=== PATIENT | female | born 1950 | race Caucasian/White ===

== ENCOUNTER 2023-04-15 14:45 | Outpatient (RCR) | payer MEDICARE, OTHER, SELFPAY | END 2023-05-17 11:43 | disposition home or self-care (01) | LOC: PT 14:45 | PROVIDERS: PCP Family Medicine; Visit Provider Family Medicine | DX: M54.9 Dorsalgia, unspecified (principal) | CPT/HCPCS: 97110; 97112; 97140; 97163 ==

== ENCOUNTER 2024-08-17 11:45 | Outpatient (OUT) | payer MEDICARE, OTHER, SELFPAY ==
--- NOTE | 2024-08-17 11:53 | XR_ITS ---
The [address] [address] Patient Name: ANDRAE FLORES MRN: [id number] date: 1950 Sex: F Assigned Patient Location: [facility] Current Patient Location: [facility] Accession/Order Number: [id number] Exam Date: 08/17/2024 13:48 Report Date: 08/17/2024 13:49 At the request of: DELMER NEWTON Procedure: XR clavicle RT XR clavicle RT 08/17/2024 12:01 PM SIGNS AND SYMPTOMS: ^Right Clavicle Lump PROTOCOL: Frontal and axial views of the right clavicle COMPARISON: None FINDINGS: A BB marker is present along the medial aspect of the shaft of the right clavicle without underlying bony expansile or destructive process. The sternoclavicular joint space is grossly within normal limits. The acromioclavicular joint shows mild hypertrophic change. The clavicles grossly intact. The visualized right hemithorax is intact. XR/XR clavicle RT IMPRESSION: No acute bony abnormalities. No significant degenerative change along the sternoclavicular joint. Mild degenerative changes are noted in the right acromioclavicular joint. Impression dictated by: Cole Briseno M.D.08/17/2024 1:49 PM Dictation Location: [place] [address] Electronically authenticated by: [id number] Y Date: 08/17/2024 13:49
--- OUTSIDE RECORDS SUMMARY | 2024-08-17 12:08 | XMS_ITS | CCD ---
Author Organization [facility] Care Team Providers Care Coach Operator Name Role Phone DR TAN COULTER Primary Care Unavailable MIGUEL ÁNGEL WOOD Consulting Unavailable SHERIE, DR ALYSON Ch Admitting Unavailable SHERIE, DR ALYSON Ch Attending Unavailable SHERIE, DR ALYSON Ch Consulting Unavailable MORENITA ., DELICIA Consulting Unavailable FALGERMAN, ANISA Consulting Unavailable KLMIGUEL ÁNGEL MEHTA Consulting Unavailable OWCHINTAN GLEZ Consulting Unavailable Unknown, Referring Provider Unavailable Unav ailable Dr. Cooper Mendoza Attending Unavail able Reji, Dr. Cooper Martinez Referring Unavail able UNKNOWN, PCP Primary Care Unavailable Dr. Cooper Mendoza Attending Unavail able Dex, Ms. Dot Aguero Referring Unavailable UNKNOWN, PCP Primary Care Unavailable Edson, BEAUTY OPERATOR Karla Pena Attending Unavailable Brandt Head Attending Unavailable Brandt Head Attending Unavailable Allergies Allergy Classification Reported Allergen(s) Allergy Type Date of Onset Reaction(s) Facility (1 source) Anesthesia IV Set MISC; Translations: [Anesthesia IV Set MISC] Allergy to drug (finding) [facility] B102 Work Phone: (1 source) Cat; Translations: [Cats] Propensity to adverse reactions (disorder) [facility] (1 source) No Known Medication Allergies; Translations: [No Known Medication Allergies] Propensity to adverse reactions (disorder) [facility] Medications Completed/Discontinued Medications Medication Drug Class(es) Dates Sig (Normalized) Sig (Original) aspirin 81 mg oral tablet (1 source) Platelet Aggregation Inhibitor, Nonsteroidal Anti-inflammatory Drug Aspirin 81 MG TAB S Quantity: 0 Refills: 0 Ordered: 15-Mar-2023 DO Active Problems Problem Classification Problem Date Documented Da te Episodic/Chronic Blindness and vision defects (6 sources) Diplopia; Translations: [Diplopia] Onset: 09-05-2022 Episodic Other aftercare (1 source) shelter (current) use of aspirin; Translations: [FCI CURRENT USE OF ASPIRIN] Onset: 09-08-2022 Episodic Other aftercare (1 source) Other fci (current) drug therapy; Translations: [OTH HEAT TREATER HEAD CURRENT DRUG THERAPY] Onset: 09-08-2022 Episodic Thyroid disorders (1 source) Graves' disease; Translations: [Toxic diffuse goiter without mention of thyrotoxic crisis or storm] Chronic Unclassified (1 source) CONTACT W/AND (SUSP) EXPOS COVID-19; Translations: [CONTACT W/AND (SUSP) EXPOS COVID-19] Onset: 09-08-2022 Results Test Name Value Interpretation Reference Range Facility Ophthalmic Eye [facility] 2022 Ophthalmic Eye Exam DOCUMENT REVIEWED BY : Cooper Mendoza MD DOCUMENT SIGNED ELECTRONICALLY BY Cooper Mendoza MD ON 03/15/2023 02:51:24 PM [facility] [address] [address] [facility]. 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 She denies further diplopia. She confirms prior history of episodes lasting 4-6 weeks of diplopia. She denies any eyelid problems. HISTORY OF PRESENT ILLNESS: HPI was performed by Dr. Cooper Mendoza MD and scribed by Ange Mendoza MD PAST MEDICAL HISTORY: SURGERIES: History of Cataract surgery; History of Eye surgery SOCIAL HISTORY: SMOKING: Non-smoker (V49.89 Z78.9) FAMILY HISTORY: MOTHER: Family history of No pertinent family history CURRENT MEDICATIONS: Aspirin 81 MG TABS (No longer available) - Tablet, [Reported] ALLERGIES: Anesthesia IV Set MISC Exam ORIENTATION, MOOD AND AFFECT: Alert AND oriented x3 RIGHT EYE LEFT EYE UNCORRECTED VA N/A N/A WEARING +0.50 -0.50 x 092 add +2.25 +0.75 -1.50 x 087 add +2.25 CORRECTED VA 20/20 20/20 PRESSURE METHOD: Goldmann Goldmann PRESSURES: 14 14 DATE-TIME: 03/15/2023 1:49:53 PM 03/15/2023 1:49:53 ETHICS INSTRUCTOR: marshal araya CONFRONTATION VF Full to count fingers Full to count fingers EXTERNAL EYE EXAM: LID: Good Position Good Position PUPIL: 5 to 3 mm, no RAPD 5 to 3 mm, no RAPD ADNEXA: Normal Normal MUSCLE BALANCE: Ortho OCULAR MOTILITY: Full. No internuclear ophthalmoplegia. No nystagmus. STEREO ONE-THIRD METER: -Fly 08/27 02/02 COLOR VA ISHIHARA OUT OF 11 OD: 11 COLOR VA ISHIHARA OUT OF 11 OS: 11 ANTERIOR SEGMENT EXAM: TEARFILM: Good Good CONJUNCTIVA: White and quiet White and quiet CORNEA: Clear Clear ANTERIOR CHAMBER: Deep and quiet Deep and quiet IRIS: Round and reactive Round and reactive LENS: pciol pciol ANTERIOR VITREOUS: Clear Clear FUNDUS EXAM: CUP TO DISC: .4 .4 OPTIC DISC: Cushing and sharp Cushing and sharp VITREOUS: Clear Clear MACULA: drusen geographic atrophy central VESSELS: Normal Normal PERIPHERY: No tears, breaks, or holes No tears, breaks, or holes Impression 1 E05.00 Graves disease-Stable 2 H53.2 Diplopia-Stable Plan 09/05/2022 MRI brain without contrast, by report from [facility], shows ?No acute intracranial process.? 09/05/2022 ultrasound duplex carotid arteries, by report from [facility], shows ?0-49% flow stenosis bilateral internal carotid arteries? 09/05/2022 CTA head AND neck, by report from [facility], shows ?No large vessel occlusion or high-grade stenosis in the head or neck.? 09/05/2022 CT head without contrast, by report from [facility], shows ?No acute intracranial abnormality? 05/26/2016 CT head without contrast, by report from [facility], shows ?1. No acute or suspicious intracranial abnormality. 2. Right maxillary acute sinusitis.? 11/09/2022 acetylcholine receptor binding, blocking AND modulating antibodies, thyroid peroxidase antibody, thyroid stimulating immunoglobulin, thyrotropin receptor antibody AND thyroid function testing negative/wnl. 09/06/2022 lipid panel with LDL 104.6. HbA1c 5.6%. 09/05/2022 ESR 10. CRP <0.2 mg/dL. TSH wnl. 03/09/2021 lipid panel LDL 107. This 72 year old woman with a history of Graves disease, HLD presents in follow up for evaluation of intermittent diplopia. Diplopia has not happened, and alignment remains normal. 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 We agreed to defer further testing for now. Plan Continue antiplatelet. Defer atorvastatin 40 mg bedtime after discussion and her preference. Follow up for further diplopia with stereo plates (dilated:11/09/2022) created by:Cooper Mendoza MD Cooper Mendoza MD DOCUMENT CREATE DATE: 03/15/2023 02:51:15 PM Received for:Cooper Mendoza MD,PhD Mar 15 2023 2:51PM Eastern Standard Time Normal Touchworks THYROID STIM IMMUNOGLOBon THYROID STIM IMMUNOGLOB <1.0 Normal <=1.3 [facility] Comment on above: Result Comment: Test Performed by: [facility] [address] [place] [address] Plastics Engineering Teacher: Aurelio Saunders M.D. Ph.D.; CLIA# [id number] Performed By: #### T SIG #### [facility] [address] [place] [address] ACHR MODULATING ABon 023 ACHR MODULATING AB 0 % Normal <=45 [facility] Comment on above: Result Comment: INTE RPRETIVE INFORMATION: Acetylcholine Modulating Ab Negative .......... 0-45 percent modulating Positive .......... 46 percent or greater modulating Approximately 85-90 percent of patients with myasthenia gravis (MG) express antibodies to the acetylcholine receptor (AChR), which can be divided into binding, blocking, and modulating antibodies. Binding antibody can activate complement and lead to loss of AChR. Blocking antibody may impair binding of acetylcholine to the receptor, leading to poor muscle contraction. Modulating antibody causes receptor endocytosis resulting in loss of AChR expression, which correlates most closely with clinical severity of disease. Approximately 10-15 percent of individuals with confirmed myasthenia gravis have no measurable binding, blocking, or modulating antibodies. This test was developed and its performance characteristics determined by [facility]. It has not been cleared or approved by the [place] Food and Drug Administration. This test was performed in a CLIA certified laboratory and is intended for clinical purposes. Performed By: [facility] [address] [place] [address] Cryptologic Supervisor: Dominik Agustin MD, PhD Performed By: #### A CRMA #### [place] [address] ACETYLCHOL.RECEPTOR BINDING ABon 11-11-2022 ACETYLCHOL.RECEPTOR BINDING AB 0.0 nmol/L Normal 0.0-0.4 [facility] Comment on above: Result Comment: INTE RPRETIVE INFORMATION: Acetylcholine Binding Ab Negative ....... 0.0 - 0.4 nmol/L Positive ....... 0.5 nmol/L or greater Approximately 85-90 percent of patients with myasthenia gravis (MG) express antibodies to the acetylcholine receptor (AChR), which can be divided into binding, blocking, and modulating antibodies. Binding antibody can activate complement and lead to loss of AChR. Blocking antibody may impair binding of acetylcholine to the receptor, leading to poor muscle contraction. Modulating antibody causes receptor endocytosis resulting in loss of AChR expression, which correlates most closely with clinical severity of disease. Approximately 10-15 percent of individuals with confirmed myasthenia gravis have no measurable binding, blocking, or modulating antibodies. This test was developed and its performance characteristics determined by [facility]. It has not been cleared or approved by the US Food and Drug Administration. This test was performed in a CLIA certified laboratory and is intended for clinical purposes. Performed By: [facility] [address] [place] [address] Cryptologic Supervisor: Dominik Agustin MD, PhD Performed By: #### A CHR #### [address] [address] ACHR BLOCKING ABon 3 ACHR BLOCKING AB 4 % Normal 0-26 [facility] Comment on above: Result Comment: INTE RPRETIVE INFORMATION: Acetylcholine Blocking Ab Negative ............ 0-26 percent blocking Indeterminate ....... 27-41 percent blocking Positive ............ 42 percent or greater blocking Approximately 85-90 percent of patients with myasthenia gravis (MG) express antibodies to the acetylcholine receptor (AChR), which can be divided into binding, blocking, and modulating antibodies. Binding antibody can activate complement and lead to loss of AChR. Blocking antibody may impair binding of acetylcholine to the receptor, leading to poor muscle contraction. Modulating antibody causes receptor endocytosis resulting in loss of AChR expression, which correlates most closely with clinical severity of disease. Approximately 10-15 percent of individuals with confirmed myasthenia gravis have no measurable binding, blocking, or modulating antibodies. This test was developed and its performance characteristics determined by [facility]. It has not been cleared or approved by the US Food and Drug Administration. This test was performed in a CLIA certified laboratory and is intended for clinical purposes. Performed By: [facility] [address] [place] [address] Cryptologic Supervisor: Dominik Agustin MD, PhD Performed By: #### A CRBL #### [address] [address] THYROTROPIN RECEPTOR ABo THYROTROPIN RECEPTOR AB <0.80 Normal <=1.75 [facility] Comment on above: Result Comment: Perf ormed By: [facility] [address] [place] [address] Cryptologic Supervisor: Dominik Agustin MD, PhD Performed By: #### T HYRA #### [address] [address] ANTITHYROID PEROX. ABon 10-25 ANTITHYROID PEROX. AB <28 Normal [facility] Comment on above: Result Comment: Nega tive: <=60 U/mL Positive: >60 U/mL Performed By: #### T POA2 #### [facility] [address] [place] [address] Ophthalmic Eye Examon 2022 Ophthalmic Eye Exam DOCUMENT REVIEWED BY : Cooper Mendoza MD DOCUMENT SIGNED ELECTRONICALLY BY Cooper Mendoza MD ON 11/09/2022 10:06:41 AM [place] [id number] [address]. [address] [place], [address] THIS DOCUMENT WAS CREATED ON: 11/09/2022 10:06:34 AM BY: Cooper Saundersrey Jim performed BAUQP-Ynhz-it Exam Date: Wednesday, November 09, 2022 PATIENT NAME: ANDRAE FLORES DATE: 1950 AGE: 72 GENDER: Female RACE: REFERRING DOCTOR: Dot Kowalski PRIMARY CARE PHYSICIAN: Tan Coulter History Chief Complaint/Reason For Visit: -- Attending history below -- This 72 year old woman with a history of Graves disease 2012, HLD presents for evaluation of diplopia. She had Graves diseasein 2012. She reports no treatment with resolution over time. She reports 3 episodes of diplopia since 04/2016 lasting 30-40 days at a time. She reports with the first episode she had a sinus infection before it. She had vertical diplopia. She does not report which nerve or muscle was involved. She then had another episode also of diplopia, but without any sinus infection. She denies any scans around these episodes. The first 2 episodes had no pain. Neuro-scrap materials buyer Dr. 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 The third episode was horizontal with onset 09/05/2022. She went to the emergency department at [facility]. She did have left pain leading up to it. She denies ptosis with all episodes. She was referred by MANAGER DR[employer]ET[employer] Dot Kowalski. By the 09/15/2022 note, she had been seen for diplopia 09/07/2022. She had then seen Dr. 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 She denies prior episodes of other neurological deficits. HISTORY OF PRESENT ILLNESS: HPI was performed by Dr. Cooper Mendoza MD and scribed by Ange Mendoza MD PAST MEDICAL HISTORY: SURGERIES: History of Cataract surgery; History of Eye surgery SOCIAL HISTORY: SMOKING: Non-smoker (V49.89 Z78.9) FAMILY HISTORY: MOTHER: Family history of No pertinent family history CURRENT MEDICATIONS: No Reported Medications - ALLERGIES: Anesthesia IV Set MISC REVIEW OF SYSTEMS: All other Review Of Systems negative Exam ORIENTATION, MOOD AND AFFECT: Alert AND oriented x3 RIGHT EYE LEFT EYE UNCORRECTED VA N/A N/A WEARING +0.50 -0.50 x 092 add +2.25 +0.75 -1.50 x 087 add +2.25 CORRECTED VA 20/20 20/20 PRESSURE METHOD: Goldmann Goldmann PRESSURES: 14 14 DATE-TIME: 11/09/2022 9:08:16 AM 11/09/2022 9:08:16 AM ITINERANT TEACHER ASSISTANT: tahmina martel CONFRONTATION VF Full to count fingers Full to count fingers EXTERNAL EYE EXAM: LID: Good Position Good Position PUPIL: 5 to 3 mm, no RAPD 5 to 3 mm, no RAPD ADNEXA: Normal Normal MUSCLE BALANCE: Ortho OCULAR MOTILITY: Full. No internuclear ophthalmoplegia. No nystagmus. STEREO ONE-THIRD METER: +Fly 3/3 8/9 COLOR VA ISHIHARA OUT OF 11 OD: 11 COLOR VA ISHIHARA OUT OF 11 OS: 11 Versions and Ductions OD Versions and Ductions OS SR elevate IO IO elevate SR 0 0 abduct 0 0 0 0 abduct 0 0 IR depress SO SO depress IR ANTERIOR SEGMENT EXAM: TEARFILM: Good Good CONJUNCTIVA: White and quiet White and quiet CORNEA: Clear Clear ANTERIOR CHAMBER: Deep and quiet Deep and quiet IRIS: Round and reactive Round and reactive LENS: pciol pciol ANTERIOR VITREOUS: Clear Clear FUNDUS EXAM: DILATION and NUMBING DROPS: Mydriacyl 1% AND Singh 2 1/2% OU 11/09/2022 09:45:32 AM CUP TO DISC: .4 .4 OPTIC DISC: Cushing and sharp Cushing and sharp VITREOUS: Clear Clear MACULA: drusen geographic atrophy central VESSELS: Normal Normal PERIPHERY: No tears, breaks, or holes No tears, breaks, or holes SPECIAL TESTS: FOREHEAD SENSATION Normal Normal CHEEK SENSATION Normal Normal MANDIBLE SENSATION Normal Normal CRANIAL NERVE V7 Normal Normal CRANIAL NERVE V8 Normal Normal CRANIAL NERVE V9: Normal CRANIAL NERVE V10: Normal CRANIAL NERVE V11 Normal Normal CRANIAL NERVE V12 Normal Normal CEREBELLAR Normal Normal PRONATOR DRIFT RIGHT SIDE: Normal PRONATOR DRIFT LEFT SIDE: Normal TANDEMWALK: Normal Impression 1 E05.00 Graves disease-New 2 H53.2 Diplopia-New Plan 09/05/2022 MRI brain without contrast, by report from [facility], shows ?No acute intracranial process.? 09/05/2022 ultrasound duplex carotid arteries, by report from [facility], shows ?0-49% flow stenosis bilateral internal carotid arteries? 09/05/2022 CTA head AND neck, by report from [facility], shows ?No large vessel occlusion or high-grade stenosis in the head or neck.? 09/05/2022 CT head without contrast, by report from [facility], shows ?No acute intracranial abnormality? 05/26/2016 CT head without contrast, by report from [facility], shows ?1. No acute or suspicious intracranial abnormality. 2. Right maxillary acute sinusitis.? 09/06/2022 lipid panel with LDL 104.6. HbA1c 5.6%. 09/05/2022 ESR 10. CRP <0.2 mg/dL. TS (more content not included)... Normal [facility] THYROXINE,FREEon 11-09-2022 THYROXINE,FREE 0.89 ng/dL Normal 0.61 - 1.12 [facility] Comment on above: Result Comment: Thyr oxine Free testing is performed using different testing methodology at [facility] than at other [facility]. Direct result comparisons should only be made within the same method. . Biotin can cause falsely elevated free T4 results. Patients taking a Biotin dose of up to 10 mg/day should refrain from taking Biotin for 24 hours before sample collection. Patient taking a Biotin dose of >10 mg/day should consult with their physician or the laboratory before the blood draw. Performed By: #### T 4FRE #### [facility] [address] [place], [place] [id number] TRIIODOTHYRONINE,FREEon 10-25 TRIIODOTHYRONINE,LIZETT E 2.8 pg/mL Normal 2.3 - 4.2 [facility] Comment on above: Performed By: #### T 3FRE #### [facility] [address] [place] [address] TSHon 11-09-2022 TSH Qn 0.88 m[IU]/L Normal 0.44 - 3.98 [facility] Comment on above: Result Comment: TSH testing is performed using different testing methodology at [facility] than at other [facility]. Direct result comparisons should only be made within the same method. Performed By: #### T SH2 #### [address] [id number] CBC AUTO DIFFon 09-06-2022 BASO # 0.0 103/ul Normal 0.0-0.1 [facility] Comment on above: Performed By: #### C BC ####[facility] [address] [place] [address]Dr. Kerry Cassidy Basophils/100 WBC (Bld) 0.6 % Normal 0.2-2.0 [facility] Comment on above: Performed By: #### C BC ####[facility] [address] [place], [place] [address]Dr. Kerry Cassidy EO # 0.2 103/ul Normal 0.0-0.7 [facility] Comment on above: Performed By: #### C BC ####[facility] [address] [place] [address]Dr. Kerry Cassidy Eosinophils/100 WBC (Bld) 3.2 % Normal 0.9-7.0 [facility] Comment on above: Performed By: #### C BC ####[facility] [address] [place], [place] [address]Dr. Kerry Cassidy Erythrocyte distribution width (RBC) [Ratio] 12.2 % Normal 11.0-15.0 [facility] Comment on above: Performed By: #### C BC ####[facility] [address] [place], [place] [address]Dr. Kerry Cassidy Hematocrit (Bld) [Volume fraction] 39.3 % Normal 36.0-48.0 [facility] Comment on above: Performed By: #### C BC ####[facility] [address] [place], [place] [address]Dr. Kerry Cassidy Hemoglobin (Bld) [Mass/Vol] 13.2 g/dL Normal 12.0-16.0 [facility] Comment on above: Performed By: #### C BC ####[facility] [address] [place] [id number]. Kerry Khanh IG # 0.00 10e3/ul Normal 0.00-0.03 [facility] Comment on above: Performed By: #### C BC ####[facility] [address] [place] [id number]. Kerry Cassidy IG % 0.0 % Normal 0.0-0.5 [facility] Comment on above: Performed By: #### C BC ####[facility] [address] [place] [address]Dr. Kerry Cassidy LYMPH # 1.7 103/ul Normal 1.2-3.8 [facility] Comment on above: Performed By: #### C BC ####[facility] [address] [place] [address]DrCharanjit Cassidy Lymphocytes/100 WBC (Bld) 36.9 % Normal 20.5-60.0 [facility] Comment on above: Performed By: #### C BC ####[facility] [address] [place] [address]DrCharanjit Cassidy MANUAL DIFF REQ NO Normal [facility] Comment on above: Performed By: #### C BC ####[facility] [address] [place] [id number]. Kerry Cassidy MCH (RBC) [Entitic mass] 31.3 pg Normal 26.7-34.0 [facility] Comment on above: Performed By: #### C BC ####[facility] [address] [place] [id number]. Gloriadeepak Cassidy MCHC (RBC) [Mass/Vol] 33.6 g/dL Normal 29.9-35.2 [facility] Comment on above: Performed By: #### C BC ####[facility] [address] [place] [id number]. Kerry Cassidy MCV (RBC) [Entitic vol] 93.1 fL Normal 81.0-99.0 [facility] Comment on above: Performed By: #### C BC ####[facility] [address] [place] [id number]. Kerry Cassidy MONO # 0.5 103/ul Normal 0.3-0.8 [facility] Comment on above: Performed By: #### C BC ####[facility] [address] [place] [id number]. Kerry Cassidy Monocytes/100 WBC (Bld) 11.2 % Normal 1.7-12.0 [facility] Comment on above: Performed By: #### C BC ####[facility] [address] [place] [id number]. Kerry Cassidy NEUT # 2.2 103/ul Normal 1.4-6.5 [facility] Comment on above: Performed By: #### C BC ####[facility] [address] [place], [place] [address]Dr. Kerry Cassidy Neutrophils/100 WBC (Bld) 48.1 % Normal 43.0-75.0 [facility] Comment on above: Performed By: #### C BC ####[facility] [address] [place] [id number]. Kerry Cassidy Platelet mean volume (Bld) [Entitic vol] 8.9 fL Critically low 9.5-13.5 [facility] Comment on above: Performed By: #### C BC ####[facility] [address] [place] [address]Dr. Kerry Cassidy PLT 266 103/ul Normal 150-450 [facility] Comment on above: Performed By: #### C BC ####[facility] [address] [place], [place] [id number]. Kerry Cassidy RBC 4.22 106/ul Normal 4.20-5.40 [facility] Comment on above: Performed By: #### C BC ####[facility] [address] [place] [id number]. Kerry Cassidy WBC 4.6 103/ul Normal 4.0-11.0 [facility] Comment on above: Performed By: #### C BC ####[facility] [address] [place], [place] [address]Dk. Kerry Cassidy ECHOCARDIO M/2D COMPLETEon 0 09-06-2022 ECHOCARDIO M/2D COMPLETE Patient: ANDRAE FLORES Exam Date: 09/06/2022 : 1950 Gender:F Ordering : DR ALYSON REHMAN . Admission #: [id number] Family : Order #: [id number] CLICK HERE TO VIEW EXAM ECHOCARDIOGRAM REPORT PROCEDURE: CARDIO PULMONARY ECHOCARDIO M/2D COMP INDICATIONS: Visual disturbance binocular diplopia COMPARISON: None. DESCRIPTION: COMPLETE ECHOCARDIOGRAM Real-time transthoracic echocardiography with 2D, M-mode, spectral and color flow Doppler performed. QUALITY: Technical quality was good. LEFT VENTRICLE: Normal chamber size. Normal left ventricular wall thickness. LV EF: Global left ventricular systolic function is normal. Calculated left ventricular ejection fraction is 58% DIASTOLIC: Normal diastolic function. ATRIAL SEPTUM: Intact atrial septum. Agitated saline contrast does not reveal an intra-cardiac shunt. LEFT ATRIUM: Normal chamber size. RIGHT ATRIUM: Normal chamber size. RIGHT VENTRICLE: Normal chamber size. Normal right ventricular systolic function. TRICUSPID VALVE: Normal mobility and thickness. No stenosis with trivial regurgitation. No evidence of pulmonary hypertension. RVSP 27mmHg MITRAL VALVE: Normal mobility and thickness. No mitral valve prolapse. No evidence of mitral valve stenosis. There is no mitral annular calcification. Trivial mitral regurgitation. AORTIC VALVE: Normal trileaflet appearance. No visible sclerosis. Normal leaflet mobility. No evidence of aortic valve stenosis. No aortic regurgitation. AORTIC ROOT: Normal diameter and appearance. PULMONIC VALVE: Normal thickness and mobility. No stenosis. No regurgitation. PERICARDIUM: Anterior free space; trivial effusion versus fat pad. IVC: Collapses with inspirations. Normal size, CONCLUSION: Global left ventricular systolic function is normal; visually estimated ejection fraction is 55 to 60%. No significant wall motion abnormalities. Normal diastolic function. The right ventricle is normal in size and systolic function. No significant valvular abnormalities. Anterior free space; trivial effusion versus fat pad. Agitated saline contrast does not reveal any intracardiac shunt. Adult Echocardiography Procedure Report Left Ventricle LVEDD (3.7 - 5.6 cm): 4.53 cm, 4.53 cm LVESD (2.2 - 4.0 cm): 3.08 cm, 3.08 cm LVIVS thickness (0.6 - 1.2 cm): 0.62 cm LVPW thickness (0.5 - 1.0 cm): 0.67 cm, 0.67 cm e': 0.10 m/s E - e': 5.57 LVOT Max Gradient: 3.74 mm[Hg] Peak Velocity (LVOT): 0.97 m/s Mean Velocity (LVOT): 0.62 m/s LVOT Diameter 1.89 cm Left Ventricular Ejection Fraction: 60.30 %, 60.30 %, 60.30 % Left Atrium LA Volume Index (2D A2C): 37.15 ml, 37.15 ml Left Atrium Systolic Dimension: 2.77 cm Mitral Valve MV E to A Ratio: 1.57 Mitral Valve A-Wave Peak Velocity: 0.35 m/s Mitral Valve E-Wave Peak Velocity: 0.55 m/s Right Ventricle RV Internal Diastolic Dimension: 2.91 cm Aorta AO Root Diam: 2.50 cm Aortic Valve AoV Area (Peak Osmar): 2.11 cm2, 2.11 cm2 AoV Area (VTI): 2.00 cm2, 2.00 cm2 Peak Velocity(Antegrade Flow): 1.29 m/s Peak Gradient(Antegrade Flow): 6.64 mm[Hg] Mean Velocity(Antegrade Flow): 0.88 m/s Mean Gradient(Antegrade Flow): 3.50 mm[Hg] Velocity Time Integral: 26.69 cm Tricuspid Valve Peak Velocity (Regurgitant Flow): 2.17 m/s, 2.43 m/s, 2.26 m/s Pulmonic Valve Mean Gradient: 2.25 mm[Hg] Mean Velocity: 0.70 m/s Peak Velocity: 1.05 m/s, 0.96 m/s Peak Gradient: 4.38 mm[Hg], 3.66 mm[Hg] Right Atrium Right Atrium Systolic Pressure: 25.90 ml, 25.90 ml Dictated by: Ene Archuleta M.D. on 09/07/2022 at 11:45 Approved by: Ene Archuleta M.D. on 09/07/2022 at 11:[address] [facility] GLYCOHEMOGLOBIN A1Con 2022 ADA RECOMMENDATION SEE BELOW Normal [facility] Comment on above: Result Comment: ADA RECOMMENDED LIMIT 4.0 - 6.0 ADA THERAPEUTIC TARGET < 7.0 ACTION SUGGESTED > 7.0 Performed By: #### A 1C ####[facility] [address] [place] [id number]. Kerry Cassidy Glucose [Mass/Vol] 114 mg/dL Normal [facility] Comment on above: Performed By: #### A 1C ####[facility] [address] [address]Dr. Kerry Cassidy HbA1c (Bld) [Mass fraction] 5.6 % Normal 4.5-6.2 [facility] Comment on above: Performed By: #### A 1C ####[facility] [address] [place] [address]Dr. Kerry Cassidy LIPID PROFILEon 09-06-2022 CHOL-HDL RATIO NORM SEE BELOW Normal [facility] Comment on above: Result Comment: 3.3 - 4.4 LOW RISK 4.4 - 7.1 AVERAGE RISK 7.1 - 11.0 MODERATE RISK >11.0 HIGH RISK Performed By: #### L IPID ####[facility] [address] [place] [address]Dr. Kerry Cassidy Cholesterol [Mass/Vol] 202 mg/dL Critically high <=200 [facility] Comment on above: Performed By: #### L IPID ####[facility] [address] [place] [id number]. Kerry Cassidy Cholesterol in HDL [Mass/Vol] 91 mg/dL Critically high 40-60 [facility] Comment on above: Performed By: #### L IPID ####[facility] [address] [place] [id number]. Kerry Cassidy Cholesterol in LDL [Mass/Vol] 104.6 mg/dL Normal [facility] Comment on above: Performed By: #### L IPID ####[facility] [address] [place] [id number]. Kerry Cassidy Cholesterol.total/Ch olesterol in HDL [Mass ratio] 2.2 {ratio} Normal [facility] Comment on above: Performed By: #### L IPID ####[facility] [address] [place] [id number]. Kerry Cassidy HDL NORMAL > or = 60 mg/dl - LO W CARDIOVASCULAR RISK <40 mg/dl - HIGH CARDIOVASCULAR RISK Normal [facility] Comment on above: Performed By: #### L IPID ####[facility] [address] [place] [id number]. Kerry Cassidy LDL CALC NORMAL SEE BELOW Normal [facility] Comment on above: Result Comment: <100 mg/dl OPTIMAL 100 - 129 mg/dl NEAR OR ABOVE OPTIMAL 130 - 159 mg/dl BORDERLINE HIGH 160 - 189 mg/dl HIGH >190 mg/dl VERY HIGH Performed By: #### L IPID ####[facility] [address] [place] [address]Dr. Kerry Cassidy Triglyceride [Mass/Vol] 32 mg/dL Normal <=150 [facility] Comment on above: Performed By: #### L IPID ####[facility] [address] [place] [id number]. Kerry Cassidy VLDL CALC 6.4 mg/dL Normal [facility] Comment on above: Performed By: #### L IPID ####[facility] [address] [place] [id number]. Kerry Cassidy MRI BRAIN WO CONon MRI BRAIN WO CON EXAM: MRI BRAIN WO CON CLINICAL INDICATION: Diplopia COMPARISON: CT head 09/05/2022 TECHNIQUE/PROTOCOL: Standard noncontrast protocol brain MRI performed (Sagittal T1 with axial T1, T2, GRE, FLAIR, and diffusion-weighted imaging). FINDINGS: No restricted diffusion, extra-axial fluid collection, hydrocephalus, midline shift, or other mass effect. Intracranial flow voids are maintained. Few punctate hyperintense T2/FLAIR periventricular and subcortical foci are likely on the basis of chronic microvascular angiopathic changes. Mild symmetric global volume loss without lobar predominance. Commensurate ventricular system caliber prominence. Normal marrow signal. No soft tissue abnormalities. Trace scattered paranasal sinus mucosal thickening. Mastoid air cells are well-aerated. IMPRESSION: No acute intracranial process. Electronically authenticated by: ANISA CHINO Date: 2022-09-06 08:25 Normal [facility] PROF 14(COMP METB)on 023 Albumin [Mass/Vol] 3.6 g/dL Normal 3.4-5.0 [facility] Comment on above: Performed By: #### C MP ####[facility] [address] [place] [address]Dr. Kerry Cassidy Albumin/Globulin [Mass ratio] 1.3 {ratio} Normal [facility] Comment on above: Performed By: #### C MP ####[facility] [address] [place] [address]Dr. Kerry Cassidy ALP [Catalytic activity/Vol] 84 U/L Normal 46-116 [facility] Comment on above: Performed By: #### C MP ####[facility] [address] [place], [place] [address]Dr. Kerry Cassidy ALT [Catalytic activity/Vol] 33 U/L Normal 14-59 [facility] Comment on above: Performed By: #### C MP ####[facility] [address] [place], [place] [address]Dr. Kerry Cassidy Anion gap [Moles/Vol] 10.9 mmol/L Normal [facility] Comment on above: Performed By: #### C MP ####[facility] [address] [place], [place] [address]Dr. Kerry Cassidy AST [Catalytic activity/Vol] 26 U/L Normal 15-37 [facility] Comment on above: Performed By: #### C MP ####[facility] [address] [place], [place] [address]Dr. Kerry Cassidy Bilirubin [Mass/Vol] 1.1 mg/dL Critically high 0.2-1.0 [facility] Comment on above: Performed By: #### C MP ####[facility] [address] [place], [place] [address]Dr. Kerry Cassidy Calcium [Mass/Vol] 8.8 mg/dL Normal 8.5-10.1 [facility] Comment on above: Performed By: #### C MP ####[facility] [address] [place] [address]Dr. Kerry Cassidy Chloride [Moles/Vol] 106 mmol/L Normal 98-107 [facility] Comment on above: Performed By: #### C MP ####[facility] [address] [place] [address]Dr. Kerry Cassidy CO2 [Moles/Vol] 26.9 mmol/L Normal 21.0-32.0 [facility] Comment on above: Performed By: #### C MP ####[facility] [address] [place], [place] [address]Dr. Kerry Cassidy Creatinine [Mass/Vol] 0.60 mg/dL Normal 0.55-1.02 [facility] Comment on above: Performed By: #### C MP ####[facility] [address] [place], [place] [address]Dr. Kerry Cassidy EGFR-AF TURKISH >60 Normal >=60 [facility] Comment on above: Performed By: #### C MP ####[facility] [address] [place], [place] [address]Dr. Kerry Cassidy EGFR-NON AF TURKISH >60 Normal >=60 [facility] Comment on above: Performed By: #### C MP ####[facility] [address] [place], [place] [address]Dr. Kerry Cassidy Globulin (S) [Mass/Vol] 2.8 g/dL Normal [facility] Comment on above: Performed By: #### C MP ####[facility] [address] [place], [place] [address]Dr. Kerry Cassidy Glucose [Mass/Vol] 98 mg/dL Normal 74-106 [facility] Comment on above: Performed By: #### C MP ####[facility] [address] [place], [place] [address]Dr. Kerry Cassidy Potassium [Moles/Vol] 3.8 mmol/L Normal 3.5-5.1 [facility] Comment on above: Performed By: #### C MP ####[facility] [address] [place], [place] [address]Dr. Kerry Khanh Protein [Mass/Vol] 6.4 g/dL Normal 6.4-8.2 [facility] Comment on above: Performed By: #### C MP ####[facility] [address] [place] [id number]. Kerry Cassidy Sodium [Moles/Vol] 140 mmol/L Normal 136-145 [facility] Comment on above: Performed By: #### C MP ####[facility] [address] [place] [id number]. Kerry Cassidy Urea nitrogen [Mass/Vol] 10.0 mg/dL Normal 7.0-18.0 [facility] Comment on above: Performed By: #### C MP ####[facility] [address] [place] [address]Dr. Kerry Cassidy Urea nitrogen/Creatinine [Mass ratio] 16.7 mg/mg Normal [facility] Comment on above: Performed By: #### C MP ####[facility] [address] [place] [id number]. Kerry Cassidy US CAROTID ART BILon 023 US CAROTID ART YUNG EXAMINATION: US CAROTID ART YUNG HISTORY: Diplopia COMPARISON: No relevant comparison available. TECHNIQUE: Duplex Doppler ultrasound analysis of carotid and vertebral arteries. . Bilateral carotid arterial duplex examination was performed using B-mode, color flow and spectral analysis. Carotid stenosis is reported according to validated velocity parameters, similar to NASCET criteria. FINDINGS: RIGHT CAROTID ARTERY Mild atherosclerotic plaque Subclavian: PSV: 122.0 cm/s cm/s EDV: 0.0 cm/s cm/s CCA: Prox: PSV: 86.5 cm/s cm/s EDV: 23.5 cm/s cm/s Mid: PSV: 88.5 cm/s cm/s EDV: 27.4 cm/s cm/s Distal: PSV: 82.6 cm/s cm/s EDV: 23.5 cm/s cm/s BULB: PSV: 72.7 cm/s cm/s EDV: 21.5 cm/s cm/s ICA: Prox: PSV: 75.7 cm/s cm/s EDV: 33.8 cm/s cm/s Mid: PSV: 88.6 cm/s cm/s EDV: 38.6 cm/s cm/s Distal: PSV: 106.4 cm/s cm/s EDV: 38.6 cm/s cm/s ECA: PSV: 88.6 cm/s cm/s EDV: 17.6 cm/s cm/s VERTEBRAL: PSV: 38.3 cm/s cm/s EDV: 14.7 cm/s cm/s ICA/CCA ratio: PSV: 1.2 EDV: 1.6 LEFT CAROTID ARTERY Mild atherosclerotic plaque Subclavian: PSV: 116.1 cm/s cm/s EDV: 9.5 cm/s CCA: Prox: PSV: 129.9 cm/s cm/s EDV: 36.9 cm/s Mid: PSV: 99.7 cm/s cm/s EDV: 27.6 cm/s Distal: PSV: 90.4 cm/s cm/s EDV: 27.6 cm/s BULB: PSV: 51.5 cm/s cm/s EDV: 17.6 cm/s ICA: Prox: PSV: 85.4 cm/s cm/s EDV: 37.0 cm/s Mid: PSV: 83.8 cm/s cm/s EDV: 37.0 cm/s Distal: PSV: 80.6 cm/s cm/s EDV: 37.0 cm/s ECA: PSV: 77.3 cm/s cm/s EDV: 14.4 cm/s VERTEBRAL: PSV: 45.0 cm/s cm/s EDV: 15.3 cm/s ICA/CCA ratio: PSV: 0.7 EDV: 1.0 IMPRESSION: 0-49% flow stenosis bilateral internal carotid arteries Spectral Doppler US Thresholds (Reference: Mal EG, et al. Radiology 2000; 214:247-252) Stenosis (%) PSV (cm/sec) VICA/VCCA 0-49 <150 <2.5 50-69 150-225 2.5-4.0 >70 >225 >4.0 Electronically authenticated by: MIGUEL ÁNGEL WOOD Date: 2022-09-06 09:[address] [facility] BNPon 09-05-2022 Natriuretic peptide B (Bld) [Mass/Vol] 107.0 pg/mL Normal <=900.0 [facility] Comment on above: Performed By: #### C RP, CMADM, CMP, TSH, BNP #### [facility] [address] [place] [address] Dr. Kerry Cassidy CARDIAC BEVERLY ADMITon 023 CK [Catalytic activity/Vol] 106 U/L Normal 26-192 [facility] Comment on above: Performed By: #### C RP, CMADM, CMP, TSH, BNP #### [facility] [address] [place] [address] Dr. Kerry Cassidy CK.MB [Mass/Vol] 2.34 ng/mL Normal <=3.60 [facility] Comment on above: Performed By: #### C RP, CMADM, CMP, TSH, BNP #### [facility] [address] [place] [address] Dr. Kerry Cassidy HSTROP 5.8 pg/mL Normal 4.0-51.3 [facility] Comment on above: Result Comment: CUT- OFF POINTS HAVE BEEN ESTABLISHED BASED ON THE FOURTH UNIVERSAL DEFINITIONS OF MYOCARDIAL INFARCTION. THE UPPER REFERENCE LIMIT (URL) OF TROPONIN, DEFINED THE 99TH PERCENTILE OF cTnI DISTRIBUTION IN A REFERENCE POPULATION, HAS BEEN CONFIRMED THE DECISION THRESHOLD FOR VA DIAGNOSIS. Performed By: #### C RP, CMADM, CMP, TSH, BNP #### [facility] [address] [place] [address] Dr. Kerry Cassidy PAMELA 34 ng/mL Normal 9-82 [facility] Comment on above: Performed By: #### C RP, CMADM, CMP, TSH, BNP #### [facility] [address] [place] [address] Dr. Kerry Cassidy CBC AUTO DIFFon 09-05-2022 BASO # 0.0 103/ul Normal 0.0-0.1 [facility] Comment on above: Performed By: #### C BC #### [facility] [address] [place] [address] Dr. Kerry Cassidy Basophils/100 WBC (Bld) 0.6 % Normal 0.2-2.0 [facility] Comment on above: Performed By: #### C BC #### [facility] [address] [place] [address] Dr. Kerry Cassidy EO # 0.0 103/ul Normal 0.0-0.7 [facility] Comment on above: Performed By: #### C BC #### [facility] [address] [place] [address] Dr. Kerry Cassidy Eosinophils/100 WBC (Bld) 0.8 % Critically low 0.9-7.0 [facility] Comment on above: Performed By: #### C BC #### [facility] [address] [place] [address] Dr. Kerry Cassidy Erythrocyte distribution width (RBC) [Ratio] 12.2 % Normal 11.0-15.0 [facility] Comment on above: Performed By: #### C BC #### [facility] [address] [place] [address] Dr. Kerry Cassidy Hematocrit (Bld) [Volume fraction] 42.1 % Normal 36.0-48.0 [facility] Comment on above: Performed By: #### C BC #### [facility] [address] [place] [address] Dr. Kerry Cassidy Hemoglobin (Bld) [Mass/Vol] 14.2 g/dL Normal 12.0-16.0 [facility] Comment on above: Performed By: #### C BC #### [facility] [address] [place] [address] Dr. Kerry Cassidy IG # 0.01 10e3/ul Normal 0.00-0.03 [facility] Comment on above: Performed By: #### C BC #### [facility] [address] [place] [address] Dr. Kerry Cassidy IG % 0.2 % Normal 0.0-0.5 [facility] Comment on above: Performed By: #### C BC #### [facility] [address] [place] [address] Dr. Kerry Cassidy LYMPH # 1.4 103/ul Normal 1.2-3.8 [facility] Comment on above: Performed By: #### C BC #### [facility] [address] [address] [address] Kerry Cassidy Lymphocytes/100 WBC (Bld) 28.1 % Normal 20.5-60.0 [facility] Comment on above: Performed By: #### C BC #### [facility] [address] [address] [address] Kerry Cassidy MANUAL DIFF REQ NO Normal [facility] Comment on above: Performed By: #### C BC #### [facility] [address] [place] [address] Dr. Kerry Cassidy MCH (RBC) [Entitic mass] 32.1 pg Normal 26.7-34.0 [facility] Comment on above: Performed By: #### C BC #### [facility] [address] [place] [address] Dr. Kerry Cassidy MCHC (RBC) [Mass/Vol] 33.7 g/dL Normal 29.9-35.2 [facility] Comment on above: Performed By: #### C BC #### [facility] [address] [place] [address] Dr. Kerry Cassidy MCV (RBC) [Entitic vol] 95.0 fL Normal 81.0-99.0 [facility] Comment on above: Performed By: #### C BC #### [facility] [address] [place] [address] Dr. Kerry Cassidy MONO # 0.4 103/ul Normal 0.3-0.8 [facility] Comment on above: Performed By: #### C BC #### [facility] [address] [place] [address] Dr. Kerry Cassidy Monocytes/100 WBC (Bld) 7.2 % Normal 1.7-12.0 [facility] Comment on above: Performed By: #### C BC #### [facility] [address] [place] [address] Dr. Kerry Cassidy NEUT # 3.1 103/ul Normal 1.4-6.5 [facility] Comment on above: Performed By: #### C BC #### [facility] [address] [address] [address] Kerry Cassidy Neutrophils/100 WBC (Bld) 63.1 % Normal 43.0-75.0 [facility] Comment on above: Performed By: #### C BC #### [facility] [address] [place] [address] Dr. Kerry Cassidy Platelet mean volume (Bld) [Entitic vol] 8.8 fL Critically low 9.5-13.5 [facility] Comment on above: Performed By: #### C BC #### [facility] [address] [place] [address] Dr. Kerry Cassidy PLT 287 103/ul Normal 150-450 [facility] Comment on above: Performed By: #### C BC #### [facility] [address] [place] [address] Dr. Kerry Cassidy RBC 4.43 106/ul Normal 4.20-5.40 [facility] Comment on above: Performed By: #### C BC #### [facility] [address] [place] [address] Dr. Kerry Cassidy WBC 5.0 103/ul Normal 4.0-11.0 [facility] Comment on above: Performed By: #### C BC #### [facility] [address] [place] [address] Dr. Kerry Cassidy CRPon 09-05-2022 CRP [Mass/Vol] mg/L Normal <=1.0 [facility] Comment on above: Performed By: #### C RP, CMADM, CMP, TSH, BNP #### [facility] [address] [place] [address] HEAD WO CONon 09-05-2022 CT HEAD WO CON CTA HEAD WO W CON, CTA NECK WO W CON, CT HEAD WO CON HISTORY: Diplopia TECHNIQUE: A CTA head and neck. Post-processed images {Maximum intensity Projection (MIP), Volume-rendered (VR), or Surface shaded display images (SSD)} were created, reviewed and archived.All CT scans at this facility use dose modulation, iterative reconstruction, and/or weight based dosing when appropriate to reduce radiation dose to as low as reasonably achievable. Contrast: IV administration of 100 cc Omnipaque 350 COMPARISON: CT brain 09/05/2022 RESULT: NECK: Soft tissues: Within normal limits. Spine: Alignment is normal. Mild degenerative changes are present. Lungs: The imaged lungs are clear. CT ARTERIOGRAM: EXTRACRANIAL CIRCULATION: Aortic arch and branch vessels: Conventional 3-vessel arch branch anatomy. No significant stenosis in the proximal brachiocephalic vessels. Carotid Stenosis: Right Common: No significant stenosis. Right Internal Carotid Plaque: No significant plaque formation. Right Internal Carotid Stenosis (% by NASCET Criteria): 0% Left Common: No significant stenosis. Left Internal Carotid Plaque: No significant plaque formation. Left Internal Carotid Stenosis (% by NASCET Criteria): 0% Cervical Vertebral Arteries: Patency: Bilateral Dominance: Codominant INTRACRANIAL CIRCULATION: Anterior circulation: Distal ICAs, ACAs and MCAs are normal in caliber. A1 segments are codominant. Posterior circulation: Distal vertebral arteries, basilar trunk and coffee grinder are normal in caliber. Proximal SCAs, AICAs and PICAs are patent. No vessel cut off, filling defect, significant focal narrowing or evidence of aneurysm. Opacified dural venous sinuses and major deep and superficial draining veins are patent. IMPRESSION: No large vessel occlusion or high-grade stenosis in the head or neck. Electronically authenticated by: CHINTAN PEREA Date: 2022-09-05 15:[address] [facility] CT STROKE HEAD WOon 09-06-[address] STROKE HEAD WO EXAMINATION: CT STROKE HEAD WO, 09/05/2022 1:43 PM EDT HISTORY: Diplopia COMPARISON: None. TECHNIQUE: CT scan of the head was performed without IV contrast. CT dose reduction technique was used, including Automated Exposure Control. FINDINGS: BRAIN: No edema, hemorrhage, mass, acute infarction, or inappropriate atrophy. CSF SPACES: No hydrocephalus, subarachnoid hemorrhage, or mass. Appropriate for age. SKULL: No fracture, mass, or other significant visible lesion. SINUSES: No significant mucosal thickening or fluid on the limited views. ORBITS: No appreciable abnormality on the limited views. OTHER: Bilateral choroid plexus calcifications IMPRESSION: No acute intracranial abnormality Electronically authenticated by: MIGUEL ÁNGEL WOOD Date: 2022-09-05 14:[address] [facility] Covid-19 PCR (CVDTB)on 08-25 SARS-CoV-2 (COVID-19) RNA RAJESH+probe Ql (Unsp spec) Not detected Normal NOT DETECTED [facility] Comment on above: Result Comment: When diagnostic testing is negative, the possibility of a false negative should be considered in the context of a patient's recent exposures and the presence of clinical signs and symptoms consistent with SARS-CoV-2. This test is not yet approved or cleared by the [place] FDA. When there are no FDA-approved or cleared tests available, and other criteria are met, FDA can make tests available under an emergency access mechanism called an Emergency Use Authorization (EUA). The EUA for this test is supported by the [place] of Health and Human Service's declaration that circumstances exist to justify the emergency use of in vitro diagnostics for the detection and/or diagnosis of the virus that causes COVID-19. This EUA will remain in effect for the duration of the COVID-19 declaration justifying emergency of IVDs, unless it is terminated or revoked by the FDA (after which the test may no longer be used). Performed By: #### C VDTBH ####[facility] [address] [place] [address]Dr. Kerry Cassidy LACTATE/LACTIC ACIDon 2022 Lactate [Moles/Vol] 1.7 mmol/L Normal 0.4-2.0 [facility] Comment on above: Performed By: #### L ACT ####[facility] [address] [place] [address]Dr. Kerry Cassidy PROF 14(COMP METB)on 023 Albumin [Mass/Vol] 4.3 g/dL Normal 3.4-5.0 [facility] Comment on above: Performed By: #### C RP, CMADM, CMP, TSH, BNP #### [facility] [address] [address] [address] Kerry Cassidy Albumin/Globulin [Mass ratio] 1.4 {ratio} Normal [facility] Comment on above: Performed By: #### C RP, CMADM, CMP, TSH, BNP #### [facility] [address] [address] [address] Kerry Cassidy ALP [Catalytic activity/Vol] 107 U/L Normal 46-116 [facility] Comment on above: Performed By: #### C RP, CMADM, CMP, TSH, BNP #### [facility] [address] [place] [address] Dr. Kerry Cassidy ALT [Catalytic activity/Vol] 41 U/L Normal 14-59 [facility] Comment on above: Performed By: #### C RP, CMADM, CMP, TSH, BNP #### [facility] [address] [place] [address] Dr. Kerry Cassidy Anion gap [Moles/Vol] 11.2 mmol/L Normal [facility] Comment on above: Performed By: #### C RP, CMADM, CMP, TSH, BNP #### [facility] [address] [place] [address] Dr. Kerry Cassidy AST [Catalytic activity/Vol] 33 U/L Normal 15-37 [facility] Comment on above: Performed By: #### C RP, CMADM, CMP, TSH, BNP #### [facility] [address] [place] [address] Dr. Kerry Cassidy Bilirubin [Mass/Vol] 0.7 mg/dL Normal 0.2-1.0 [facility] Comment on above: Performed By: #### C RP, CMADM, CMP, TSH, BNP #### [facility] [address] [place] [address] Dr. Kerry Cassidy Calcium [Mass/Vol] 9.4 mg/dL Normal 8.5-10.1 [facility] Comment on above: Performed By: #### C RP, CMADM, CMP, TSH, BNP #### [facility] [address] [place] [address] Dr. Kerry Cassidy Chloride [Moles/Vol] 103 mmol/L Normal 98-107 [facility] Comment on above: Performed By: #### C RP, CMADM, CMP, TSH, BNP #### [facility] [address] [place] [address] Dr. Kerry Cassidy CO2 [Moles/Vol] 29.8 mmol/L Normal 21.0-32.0 [facility] Comment on above: Performed By: #### C RP, CMADM, CMP, TSH, BNP #### [facility] [address] [address] [address] Kerry Cassidy Creatinine [Mass/Vol] 0.74 mg/dL Normal 0.55-1.02 [facility] Comment on above: Performed By: #### C RP, CMADM, CMP, TSH, BNP #### [facility] [address] [address] [address] Kerry Cassidy EGFR-AF TURKISH >60 Normal >=60 [facility] Comment on above: Performed By: #### C RP, CMADM, CMP, TSH, BNP #### [facility] [address] [place] [address] Dr. Kerry Cassidy EGFR-NON AF TURKISH >60 Normal >=60 [facility] Comment on above: Performed By: #### C RP, CMADM, CMP, TSH, BNP #### [facility] [address] [place] [address] Dr. Kerry Cassidy Globulin (S) [Mass/Vol] 3.1 g/dL Normal [facility] Comment on above: Performed By: #### C RP, CMADM, CMP, TSH, BNP #### [facility] [address] [place] [address] Dr. Kerry Cassidy Glucose [Mass/Vol] 165 mg/dL Critically high 74-106 T [facility] Comment on above: Performed By: #### C RP, CMADM, CMP, TSH, BNP #### [facility] [address] [place] [address] Dr. Kerry Cassidy Potassium [Moles/Vol] 4.0 mmol/L Normal 3.5-5.1 [facility] Comment on above: Performed By: #### C RP, CMADM, CMP, TSH, BNP #### [facility] [address] [place] [address] Dr. Kerry Cassidy Protein [Mass/Vol] 7.4 g/dL Normal 6.4-8.2 [facility] Comment on above: Performed By: #### C RP, CMADM, CMP, TSH, BNP #### [facility] [address] [address] [address] Kerry Cassidy Sodium [Moles/Vol] 140 mmol/L Normal 136-145 [facility] Comment on above: Performed By: #### C RP, CMADM, CMP, TSH, BNP #### [facility] [address] [address] [address] Kerry Cassidy Urea nitrogen [Mass/Vol] 10.0 mg/dL Normal 7.0-18.0 [facility] Comment on above: Performed By: #### C RP, CMADM, CMP, TSH, BNP #### [facility] [address] [address] [address] Kerry Cassidy Urea nitrogen/Creatinine [Mass ratio] 13.5 mg/mg Normal [facility] Comment on above: Performed By: #### C RP, CMADM, CMP, TSH, BNP #### [facility] [address] [address] [address] Kerry Cassidy PROTIMEon 09-05-2022 INR Coag (PPP) [Relative time] 1.00 {INR} Normal [facility] Comment on above: Performed By: #### P T #### [facility] [address] [place] [address] Dr. Kerry Cassidy INR GUIDELINES SEE BELOW Normal [facility] Comment on above: Result Comment: LISA RED INR: 2.0 - 3.0 CONDITIONS NOT LISTED BELOW 2.5 - 3.5 FOR PROSTHETIC HEART VALVE REPLACEMENT 2.5 - 3.5 RECURRENT THROMBOSIS Performed By: #### P T #### [facility] [address] [place] [address] Dr. Kerry Cassidy PT Coag (PPP) [Time] 10.6 s Normal 9.0-11.6 [facility] Comment on above: Performed By: #### P T #### [facility] [address] [address] [address] Kerry Cassidy SED RATE [facility] 2022 SED RATE 10 mm/hr Normal <=30 [facility] Comment on above: Performed By: #### S EDR ####[facility] [address] [place], [place] [address]BrDr. Kerry Cassidy TSHon 09-05-2022 TSH 1.074 uIU/mL Normal 0.358-3.740 [facility] Comment on above: Performed By: #### C RP, CMADM, CMP, TSH, BNP #### [facility] [address] [place], [place] [address] Dr. Kerry Cassidy XR CHEST 1 Von 09-05-2022 XR CHEST 1 V EXAMINATION: XR CHES T 1 V HISTORY: Double vision COMPARISON: None. TECHNIQUE: Portable chest FINDINGS: The lung parenchyma is free of consolidation or infiltrate. No pneumothorax or pleural effusion. The cardiac, mediastinal and hilar contours are normal. The visualized osseous structures exhibit no gross abnormality. IMPRESSION: No acute cardiopulmonary abnormality. Electronically authenticated by: MIGUEL ÁNGEL ESCALONA Date: 2022-09-05 15:14 Normal [facility] CNOVon 08-05-2021 CNOV Office Visit (DERMCC ) ANDRAE FLORES ([id number]) 1950 F Date Time Provider Department 08/05/21 2:45 PM NICOLE STEPHENS DERMBINDU During your visit today, we recorded the following information about you: Nicole Stephens MD 08/05/2021 3:53 PM Signed DERMATOLOGY / NEW PATIENT CONSULT Consultation requested by patient for an opinion regarding skin. HPI: The patient is a 70 year old female presenting with a complaint of rough lesion on right shoulder. Has been changing in color recently. Problem present for 5+ months. -Multiple itchy dark lau lesions located on trunk for several months, Used cortisone cream and OTC lotion. DERM HISTORY: No history of chronic skin disease FAMILY DERM HISTORY: No history of chronic skin disease No past medical history on file. No past surgical history on file. Medications and Allergies reviewed. PHYSICAL EXAM: The patient is pleasant, oriented x 3, in no acute distress. Exam performed of the scalp, face, neck, chest, back, abdomen and arms. Significant findings noted below, otherwise no suspicious lesions noted at this time. Objective Chest - Medial (Center), Mid Back: Several 1-2 mm whitish rough papules on chest and upper abdomen. Brown stuck-on papules on back. Objective Chest - Medial (Center), Right Shoulder - Anterior: Inflamed brown flat-topped papules Objective Chest - Medial (Center): 4x5 mm brown macule with uniform pigment and smooth borders. ASSESSMENT/PLAN: 1. Inflamed seborrheic keratosis - ICD9: 702.11, ICD10: L82.0 (primary diagnosis) - CRYOTHERAPY SKIN LESION x 2. 2. Seborrheic keratosis - ICD9: 702.19, ICD10: L82.1 -Patient reassured of benign nature of lesion(s). 3. Nevus, non-neoplastic - ICD9: 448.1, ICD10: I78.1 Monitor for changes. The documentation for this note was completed by Alonso Padgett MA/Bailey Barnes CMA acting as scribe for Nicole Stephens MD. August 05, 2021 3:01 PM. I agree with the Chief Complaint, ROS, and Past Histories independently gathered by the clinical postal support employee and the remaining scribed note accurately describes my personal service to the patient. MD Nicole Dodson MD 08/05/2021 3:31 PM Signed SKIN CARE AFTER CRYOSURGERY The SKIN'S response to cryosurgery (freezing) can be mild to more severe, depending on the depth of the freeze and the location of the area treated. You may have only mild redness and swelling with a little discomfort or significant discoloration and blistering with considerable discomfort. A burning sensation in the skin may last from several minutes to several hours after the procedure. Follow these instructions when caring for an area treated by cryosurgery. MINOR RESPONSE: 1. The area may sting or burn for a short time after treatment. 2. The treated area will be red in color at first then turn brown and flaky as it heals the upper layer of skin sloughs off. 3. Gently cleanse the area with Q-tips dipped in rubbing alcohol. Pat dry and apply a thin film of VASELINE. Do this at least once a day to prevent infection until open wound is closed. MAJOR RESPONSE: 1. Follow instructions as stated for minor response. 2. The area may sting and burn for several hours after treatment. 3. To relieve throbbing and pain, elevate the treatment area. 4. Acetaminophen (Tylenol) may be taken every 3 to 4 hours for discomfort. 5. A blister will form in the area of freezing. It may be filled with clear fluid or blood. This response is not unusual. 6. Do not break the blister unless it becomes uncomfortable. You may prick the blister with a sterile needle or pin to remove the fluid. Leave the skin intact. 7. Cleanse twice a day with rubbing alcohol and apply vaseline to prevent infection and a thick scab from forming. 8. All treated areas usually heal within 3 to 4 weeks. IF YOU EXPERIENCE ANY PROBLEMS OR HAVE ANY QUESTIONS, PLEASE CONTACT OUR OFFICE. Ester [phone] Chanda [phone] Referring Provider: SELF [200] Allergies As of Date: 08/05/2021 (No Known Allergies) Date Reviewed: 08/05/2021 Reviewed by: Alonso Padgett MA - Fully Assessed Reason for Visit: New Patient [172] Primary Visit Diagnosis:Inflamed seborrheic keratosis [L82.0] Other Visit Diagnoses:Seborrheic keratosis [L82.1] Nevus, non-neoplastic [I78.1] Order(s):CRYOTHERAPY SKIN LESION [2483811] Order #: [id number]: 1 Prescriptions as of 08/05/2021 - aspirin 81 mg cap Take by mouth. Problem List As Of Date 08/05/2021 Noted Resolved Hyperlipidemia [E78.5] 03/23/2021 Keratoconjunctivitis sicca not due to Sjogren's*08/12/2020 Other instructions from your clinician: SKIN CARE AFTER CRYOSURGERY The SKIN'S response to cryosurgery (freezing) can be mild to more severe, depending on the depth of the freeze and the location of the area treated. You may have only mild redne (more content not included)... Normal [facility]OL[facility] 03-11-2021 Albumin [Mass/Vol] 4.2 g/dL Normal 3.6-5.1 [facility] Comment on above: Performed By: #### 1 0231, 7600 #### [facility] of [address], [address] [place] [address] [employer] Operator: Chaz Tucker MD Albumin/Globulin [Mass ratio] 1.8 {ratio} Normal 1.0-2.5 [facility] Comment on above: Performed By: #### 1 0231, 7600 #### [facility] of [address], [address] [place] [address] [employer] Operator: Chaz Tucker MD ALP [Catalytic activity/Vol] 70 U/L Normal 37-153 [facility] Comment on above: Performed By: #### 1 0231, 7600 #### [facility] of [address], [address] [place] [address] [employer] Operator: Chaz Tucker MD ALT [Catalytic activity/Vol] 18 U/L Normal 6-29 [facility] Comment on above: Performed By: #### 1 023, 7600 #### [facility] of [address], [address] [place] [address] [employer] Operator: Chaz Tucker MD AST [Catalytic activity/Vol] 22 U/L Normal 10-35 [facility] Comment on above: Performed By: #### 1 0231, 7600 #### [facility] of [address], [address] [place] [address] [employer] Operator: Chaz Tucker MD Bilirubin [Mass/Vol] 1.0 mg/dL Normal 0.2-1.2 [facility] Comment on above: Performed By: #### 1 0231, 7600 #### [facility] of [address], [address] [place] [address] [employer] Operator: Chaz Tucker MD BUN/CREATININE RATIO NOT APPLICABLE Normal 6-22 [facility] Comment on above: Performed By: #### 1 0231, 7600 #### [facility] of [address], [address] [place] [address] [employer] Operator: Chaz Tucker MD Calcium [Mass/Vol] 9.3 mg/dL Normal 8.6-10.4 [facility] Comment on above: Performed By: #### 1 230, 7600 #### [facility] [place] [address] [employer] Operator: Chaz Tucker MD Chloride [Moles/Vol] 103 mmol/L Normal 98-110 [facility] Comment on above: Performed By: #### 1 023, 7600 #### [facility] [address] [place] [address] [employer] Operator: Chaz Tucker MD CO2 [Moles/Vol] 30 mmol/L Normal 20-32 [facility] Comment on above: Performed By: #### 1 023, 7600 #### [facility] [place] [address] [employer] Operator: Chaz Tucker MD Creatinine [Mass/Vol] 0.68 mg/dL Normal 0.50-0.99 [facility] Comment on above: Result Comment: For patients >49 years of age, the reference limit for Creatinine is approximately 13% higher for people identified as -Angolan. Performed By: #### 1 230, 0 #### [facility] [place] [address] [employer] Operator: Chaz Tucker MD eGFR NON-AFR. TURKISH 90 mL/min/1.73m2 Normal > OR = 60 [facility] Comment on above: Performed By: #### 1 230, 7600 #### [facility] [place] [address] [employer] Operator: Chaz Tucker MD GFR/1.73 sq M.predicted among blacks MDRD (S/P/Bld) [Vol rate/Area] 104 mL/min/{1.73_m2} Normal > OR = 60 [facility] Comment on above: Performed By: #### 1 230, 7600 #### [facility] [place] [address] [employer] Operator: Chaz Tucker MD Globulin (S) [Mass/Vol] 2.4 g/dL Normal 1.9-3.7 [facility] Comment on above: Performed By: #### 1 0231, 7600 #### [facility] [place] [address] [employer] Operator: Chaz Tucker MD Glucose [Mass/Vol] 88 mg/dL Normal 65-99 [facility] Comment on above: Result Comment: Fasting reference interval Performed By: #### 1 0231, 7600 #### [facility] [place] [address] [employer] Operator: Chaz Tucker MD Potassium [Moles/Vol] 4.5 mmol/L Normal 3.5-5.3 [facility] Comment on above: Performed By: #### 1 023, 7600 #### [facility] [place] [address] [employer] Operator: Chaz Tucker MD Protein [Mass/Vol] 6.6 g/dL Normal 6.1-8.1 [facility] Comment on above: Performed By: #### 1 023, 7600 #### [facility] [place] [address] [employer] Operator: Chaz Tucker MD Sodium [Moles/Vol] 137 mmol/L Normal 135-146 [facility] Comment on above: Performed By: #### 1 0231, 7600 #### [facility] [place] [address] [employer] Operator: Chaz Tucker MD Urea nitrogen [Mass/Vol] 11 mg/dL Normal 7-25 [facility] Comment on above: Performed By: #### 1 0231, 7600 #### [facility] [place] [address] [employer] Operator: Chaz Tucker MD LIPID PANEL, [facility] 02-25 Cholesterol [Mass/Vol] 201 mg/dL High <200 [facility] Comment on above: Performed By: #### 1 0231, 7600 #### [facility] [address], [address] [place] [address] [employer] Operator: Chaz Tucker MD Cholesterol in HDL [Mass/Vol] 77 mg/dL Normal > OR = 50 [facility] Comment on above: Performed By: #### 1 023, 7600 #### [facility] [address], [address] [place] [address] [employer] Operator: Chaz Tucker MD Cholesterol in LDL [Mass/Vol] 107 mg/dL High [facility] Comment on above: Result Comment: Refe rence range: <100 Desirable range <100 mg/dL for primary prevention; <70 mg/dL for patients with CHD or diabetic patients with > or = 2 CHD risk factors. LDL-C is now calculated using the Mary Beth calculation, which is a validated novel method providing better accuracy than the Friedewald equation in the estimation of LDL-C. Robby SS et al. OWEN. 2013;310(19): 6301-0364 (http://education.MessageParty.Runtastic/faq/MLV234) Performed By: #### 1 230, 0 #### [facility] [place] [address] [employer] Operator: Chaz Tucker MD Cholesterol.total/Ch olesterol in HDL [Mass ratio] 2.6 {ratio} Normal <5.0 [facility] Comment on above: Performed By: #### 1 230, 0 #### [facility] [place] [address] [employer] Operator: Chaz Tucker MD NON HDL CHOLESTEROL 124 mg/dL (calc) Normal <130 [facility] Comment on above: Result Comment: For patients with diabetes plus 1 major ASCVD risk factor, treating to a non-HDL-C goal of <100 mg/dL (LDL-C of <70 mg/dL) is considered a therapeutic option. Performed By: #### 1 023, 7600 #### [facility] [place] [address] [employer] Operator: Chaz Tucker MD Triglyceride [Mass/Vol] 76 mg/dL Normal <150 [facility] Comment on above: Performed By: #### 1 0231, 8850 #### [facility] [address], [address] [place] [address] [employer] Operator: Chaz Tucker MD SARS CoV 2 SEROLOGY (COVID19 ) AB (IgG,IgM), IAon 01-16-2021 SARS-CoV-2 (COVID-19) Ab IA Ql Negative Normal NEGATIVE [facility] Comment on above: Result Comment: Reference range: Negative These tests are intended for use as an aid in identifying individuals with an adaptive immune response to SARS-CoV-2, indicating recent or prior infection. Results are for the detection of SARS-CoV-2 IgG and IgM antibodies. IgM antibodies to SARS-CoV-2 are generally detectable in blood several days after initial infection, with IgG antibodies typically reaching detectable levels a few days later. The duration of time antibodies are present post-infection is not well characterized. At this time, it is unknown how long IgG and IgM antibodies persist following infection, or if the presence of antibodies confers protective immunity. Individuals may have detectable virus present for several weeks following seroconversion. Negative results for antibodies do not preclude acute SARS-CoV-2 infection. These tests should not be used to diagnose acute SARS-CoV-2 infection. If acute infection is suspected, direct testing for SARS-CoV-2 is necessary. False positive results for the tests may occur due to cross-reactivity from pre-existing antibodies or other possible causes. The sensitivity of the tests early after infection is unknown. IgM Result IgG Result Interpretation Negative Negative Antibodies not detected. Does not preclude acute SARS-CoV-2 infection. Negative Positive Suggests past exposure to SARS-CoV-2. Positive Negative Suggests recent exposure to SARS-CoV-2. Positive Positive Suggests recent exposure to SARS-CoV-2. Please review the Fact Sheets available for health care providers and patients using the following websites: [employer]/WorldDesk/Covid-19/HCP/antibody/fact-sheet2 [employer]/home/Covid-19/Patients/antibody/fact-sheet2 [employer]/home/Covid-19/HCP/antibody/fact-sheet6 [employer]/home/Covid-19/Patients/antibody/fact-sheet6 These tests have been authorized by the FDA under an Emergency Use Authorization (EUA) for use by authorized laboratories. The FDA authorized fact sheets are available on the [employer] website: www.[employer]/Covid19. For additional information please refer to http://education.Travel Appeal.Runtastic/faq/EIC254 (This link is being provided for informational/ educational purposes only.) Performed By: #### 3 1672 #### [employer] [address], [address] [place] [address] [employer] Operator: Chaz Tucker MD SARS-CoV-2 (COVID-19) IgM Ab [Presence] in Serum, Plasma or Blood by Rapid immunoassay Negative Normal NEGATIVE [facility] Comment on above: Result Comment: Reference range: Negative These tests are intended for use as an aid in identifying individuals with an adaptive immune response to SARS-CoV-2, indicating recent or prior infection. Results are for the detection of SARS-CoV-2 IgG and IgM antibodies. IgM antibodies to SARS-CoV-2 are generally detectable in blood several days after initial infection, with IgG antibodies typically reaching detectable levels a few days later. The duration of time antibodies are present post-infection is not well characterized. At this time, it is unknown how long IgG and IgM antibodies persist following infection, or if the presence of antibodies confers protective immunity. Individuals may have detectable virus present for several weeks following seroconversion. Negative results for antibodies do not preclude acute SARS-CoV-2 infection. These tests should not be used to diagnose acute SARS-CoV-2 infection. If acute infection is suspected, direct testing for SARS-CoV-2 is necessary. False positive results for the tests may occur due to cross-reactivity from pre-existing antibodies or other possible causes. The sensitivity of the tests early after infection is unknown. IgM Result IgG Result Interpretation Negative Negative Antibodies not detected. Does not preclude acute SARS-CoV-2 infection. Negative Positive Suggests past exposure to SARS-CoV-2. Positive Negative Suggests recent exposure to SARS-CoV-2. Positive Positive Suggests recent exposure to SARS-CoV-2. Please review the Fact Sheets available for health care providers and patients using the following websites: [employer]/home/Covid-19/HCP/antibody/fact-sheet2 [employer]/home/Covid-19/Patients/antibody/fact-sheet2 [employer]Runtastic/home/Covid-19/HCP/antibody/fact-sheet6 [employer]/home/Covid-19/Patients/antibody/fact-sheet6 These tests have been authorized by the FDA under an Emergency Use Authorization (EUA) for use by authorized laboratories. The FDA authorized fact sheets are available on the [employer] website: www.[employer]/Covid19. For additional information please refer to http://education.Zillabyte/faq/ACH248 (This link is being provided for informational/ educational purposes only.) Performed By: #### 3 1672 #### [facility] [address], [address] [place] [address] [employer] Dr[employer] Operator: Chaz Tucker MD Encounters Encounter Date Encounter Type Care Provider Facility Start: 08-27-2024 ambulatory Brandt Head Facility :[facility] Start: 08-17-2024 ambulatory BEAUTY OPERATOR Karla De La Garza ity:[facility] Start: 04-02-2024 ambulatory Brandt Head Facility :[facility] Start: 03-15-2023 Patient encounter procedure Referring Provider Unknown [facility] [place] [id number] Work Phone: Start: 03-15-[address] Cooper Mendoza Facility:[id number] Start: 11-09-[address] Cooper Mendoza Facility:[id number] Start: 09-05-2022 End: 09-06-[address] TAN COULTER Facility:[facility] Procedures Date Procedure Procedure Detail Performing Clinician Cataract surgery Referring Nargis ramos Unknown Surgical procedure on eye proper Referring Provider Unknown Payers Date Payer Category Payer Medicare [id number] 1957 Unknown [id number] 1950 Unknown [id number] 2.16.84 [id number] 1950 Unknown [id number] 2.16. [id number] 1950 Unknown [id number] 2.16. [id number] 1950 Unknown [id number] 2.16.8 [id number] 1950 Unknown [id number] 2.16.8 [id number] 1950 Unknown [id number] 2.16.8 [id number] Unknown Social History Date Type Detail Facility Non-smoker Non-smoker [facility] Work Phone: Progress note 08-05-2021 Note Date & Type Note Facility 08-05-2021 Note HNO ID: [id number] Author: Nicole Stephens MD Service: ? Author Type: Physician Type: Progress Notes Filed: 08/05/2021 3:53 PM Note Text: DERMATOLOGY / NEW PATIENT CONSULT Consultation requested by patient for an opinion regarding skin. HPI: The patient is a 70 year old female presenting with a complaint of rough lesion on right shoulder. Has been changing in color recently. Problem present for 5+ months. -Multiple itchy dark lau lesions located on trunk for several months, Used cortisone cream and OTC lotion. DERM HISTORY: No history of chronic skin disease FAMILY DERM HISTORY: No history of chronic skin disease No past medical history on file. No past surgical history on file. Medications and Allergies reviewed. PHYSICAL EXAM: The patient is pleasant, oriented x 3, in no acute distress. Exam performed of the scalp, face, neck, chest, back, abdomen and arms. Significant findings noted below, otherwise no suspicious lesions noted at this time. Objective Chest - Medial (Center), Mid Back: Several 1-2 mm whitish rough papules on chest and upper abdomen. Brown stuck-on papules on back. Objective Chest - Medial (Center), Right Shoulder - Anterior: Inflamed brown flat-topped papules Objective Chest - Medial (Center): 4x5 mm brown macule with uniform pigment and smooth borders. ASSESSMENT/PLAN: 1. Inflamed seborrheic keratosis - ICD9: 702.11, ICD10: L82.0 (primary diagnosis) - CRYOTHERAPY SKIN LESION x 2. 2. Seborrheic keratosis - ICD9: 702.19, ICD10: L82.1 -Patient reassured of benign nature of lesion(s). 3. Nevus, non-neoplastic - ICD9: 448.1, ICD10: I78.1 Monitor for changes. The documentation for this note was completed by Alonso Padgett MA/Bailey Barnes CMA acting as scribe for Nicole Stephens MD. August 05, 2021 3:01 PM. I agree with the Chief Complaint, ROS, and Past Histories independently gathered by the clinical postal support employee and the remaining scribed note accurately describes my personal service to the patient. Nicole Stephens MD [facility] Summary Purpose Family History No Family History Records FoundUnknown Family Member Name Dates Details No pertinent family history: Mother(V49.89, [id number]) Status:Active Advance Directives No Advanced Directives Records FoundNo Advanced Directives Records FoundNo Advanced Directives Records FoundNo Advanced Directives Records FoundNo Advanced Directives Records FoundNo Advanced Directives Records Found Additional Source Comments INFORMATION SOURCE (unrecogn ized section and content) DATE CREATED AUTHOR 04/26/2021 [facility] DATE CREATED AUTHOR AUTHOR'S ORGANIZ ATION 09/18/2021 [facility] DATE CREATED AUTHOR AUTHOR'S ORGANIZ ATION 09/09/2022 [facility] DATE CREATED AUTHOR AUTHOR'S ORGANIZ ATION 03/17/2023 [facility] DATE CREATED AUTHOR AUTHOR'S ORGANIZ ATION 03/17/2023 [employer] DATE CREATED AUTHOR AUTHOR'S ORGANIZ ATION 07/28/2024 [facility] FOR RECORDS PERTAINING TO PATIENTS WHO ARE OR HAVE BEEN ENROLLED IN A CHEMICAL DEPENDENCY/SUBSTANCEABUSE PROGRAM, SOME INFORMATION MAY BE OMITTED. This clinical summary was aggregated from multiple sources. Caution should be exercised in using it in the provision of clinical care. This summary normalizes information from multiple sources, and as a consequence, information in this document may materially change the coding, format and clinical context of patient data. In addition, data may be omitted in some cases. CLINICAL DECISIONS SHOULD BE BASED ON THE PRIMARY CLINICAL RECORDS. [employer] provides no warranty or guarantee of the accuracy or completeness of information in this document.
== END 2024-08-17 11:46 | disposition home or self-care (01) ==
LOC: RAD 11:49
PROVIDERS: PCP Family Medicine; Visit Provider Nurse Practitioner
DX: R22.2 Localized swelling, mass and lump, trunk (principal)
CPT/HCPCS: 73000

== ENCOUNTER 2024-09-04 09:11 | Outpatient (OUT) | payer MEDICARE, OTHER, SELFPAY ==
--- OUTSIDE RECORDS SUMMARY | 2024-09-04 09:18 | XMS_ITS | CCD ---
Author Organization [facility] Care Team Providers Care Administrative Executive Name Role Phone NAVID, DR TAN Young Primary Care Unavailable MIGUEL ÁNGEL WOOD Consulting Unavailable SHERIE, DR ALYSON Ch Admitting Unavailable SHERIE, DR ALYSON Ch Attending Unavailable SHERIE, DR ALYSON Ch Consulting Unavailable MORENITA ., DELICIA Consulting Unavailable FALVO, ANISA Consulting Unavailable KLMIGUEL ÁNGEL MEHTA Consulting Unavailable OWOYELE, CHINTAN Consulting Unavailable Unknown, Referring Provider Unavailable Unav ailable Reji, Dr. Cooper Martinez Attending Unavail able Reji, Dr. Cooper Martinez Referring Unavail able UNKNOWN, PCP Primary Care Unavailable Dr. Cooper Mendoza Attending Unavail able Dex, Charanjit Lesly Referring Unavailable UNKNOWN, PCP Primary Care Unavailable Brandt Head Attending Unavailable Brandt Head Attending Unavailable Karla Sandhu Attending Unavailable Brandt Head Admitting Unavailable Brandt Head Attending Unavailable Brandt Head Attending Unavailable Brandt Head Attending Unavailable Brandt Head Attending Unavailable Brandt Head Attending Unavailable Brandt Head Attending Unavailable MD Brandt Head Admitting Unavailable MD Brandt Head Attending Unavailable Allergies Allergy Classification Reported Allergen(s) Allergy Type Date of Onset Reaction(s) Facility (1 source) Anesthesia IV Set MISC; Translations: [Anesthesia IV Set MISC] Allergy to drug (finding) [facility] [facility] Work Phone: (1 source) Cat; Translations: [Cats] Propensity to adverse reactions (disorder) [facility] Repository (1 source) No Known Medication Allergies; Translations: [No Known Medication Allergies] Propensity to adverse reactions (disorder) [facility] Medications Completed/Discontinued Medications Medication Drug [...] source) shelter (current) use of aspirin; Translations: [COUNSELING AIDE CURRENT USE OF ASPIRIN] Onset: 09-08-2022 Episodic Other aftercare (1 source) Other termite technician (current) drug therapy; Translations: [OTH COUNSELING AIDE CURRENT DRUG THERAPY] Onset: 09-08-2022 Episodic Thyroid disorders (1 source) Graves' disease; Translations: [Toxic diffuse goiter without mention of thyrotoxic crisis or storm] Chronic Unclassified (1 source) CONTACT W/AND (SUSP) EXPOS COVID-19; Translations: [CONTACT W/AND (SUSP) EXPOS COVID-19] Onset: 09-08-2022 Results Test Name Value Interpretation Reference Range Facility [facility] 08-30-2024 Albumin [Mass/Vol] 4.1 g/dL Normal 3.3-5.0 [facility] Comment on above: Performed By: #### 2 [id number] #### [facility] [address] [place] [address] Albumin/Globulin (S) [Mass conc ratio] 1.6 Normal 1.1-2.2 [facility] Comment on above: Performed By: #### 2 [id number] #### [facility] [address] [place] [address] ALP [Catalytic activity/Vol] 86 Int._Unit/L Normal 21-98 [facility] Comment on above: Performed By: #### 2 [id number] #### [facility] [address] [place] [address] ALT No additional P-5'-P [Catalytic activity/Vol] 20 Int._Unit/L Normal 6-46 [facility] Comment on above: Performed By: #### 2 [id number] #### [facility] [address] [place] [address] Anion gap [Moles/Vol] 11 mmol/L Normal 6-16 [facility] Comment on above: Performed By: #### 2 [id number] #### [facility] [address] [place] [address] AST [Catalytic activity/Vol] 26 Int._Unit/L Normal 5-43 [facility] Comment on above: Performed By: #### 2 [id number] #### [facility] [address] [place] [address] Bilirubin [Mass/Vol] 1.3 mg/dL High 0.0-1.1 [facility] Comment on above: Performed By: #### 2 [id number] #### [facility] [address] [place] [address] Calcium [Mass/Vol] 9.1 mg/dL Normal 8.9-11.1 [facility] Comment on above: Performed By: #### 2 [id number] #### [facility] [address] [place] [address] Chloride [Moles/Vol] 105 mmol/L Normal 101-111 [facility] Comment on above: Performed By: #### 2 [id number] #### [facility] [address] [place] [address] CO2 [Moles/Vol] 27 mmol/L Normal 21-31 [facility] Comment on above: Performed By: #### 2 [id number] #### [facility] [address] [place] [address] Creatinine [Mass/Vol] 0.8 mg/dL Normal 0.5-1.3 [facility] Comment on above: Performed By: #### 2 [id number] #### [facility] [address] [place] [address] Globulin (S) [Mass/Vol] 2.6 g/dL Normal 1.4-4.0 [facility] Comment on above: Performed By: #### 2 [id number] #### [facility] [address] [place] [address] Glucose [Mass/Vol] 98 mg/dL Normal 55-199 [facility] Comment on above: Performed By: #### 2 [id number] #### [facility] [address] [place] [address] Potassium [Moles/Vol] 5.0 mmol/L Normal 3.5-5.3 [facility] Comment on above: Performed By: #### 2 [id number] #### [facility] [address] [place] [address] Protein [Mass/Vol] 6.7 g/dL Normal 6.0-7.8 [facility] Comment on above: Performed By: #### 2 [id number] #### [facility] [address] [place] [address] Sodium [Moles/Vol] 138 mmol/L Normal 135-145 [facility] Comment on above: Performed By: #### 2 [id number] #### [facility] [address] [place] [address] Urea nitrogen [Mass/Vol] 15 mg/dL Normal 5-21 [facility] Comment on above: Performed By: #### 2 [id number] #### [facility] [address] [place] [address] Urea nitrogen/Creatinine [Mass ratio] 19 No Units Normal 10-20 [facility] Comment on above: Performed By: #### 2 [id number] #### [facility] [address] [place] [address] Lipid Panelon 08-30-2024 Cholesterol [Mass/Vol] 203 mg/dL High 120-200 [facility] Comment on above: Performed By: #### 2 [id number] #### [facility] [address] [place] [address] Cholesterol in HDL [Mass/Vol] 79 mg/dL Invalid Interpretation Code [facility] Comment on above: Result Comment: '>= 60 LOW RISK' '<= 40 HIGH RISK' Performed By: #### 2 [id number] #### [facility] [address] [place] [address] Cholesterol in LDL [Mass/Vol] 110 mg/dL Normal <=129 [facility] Comment on above: Performed By: #### 2 [id number] #### [facility] [address] [place] [address] Cholesterol in VLDL [Mass/Vol] 16 mg/dL Normal 7-40 [facility] Comment on above: Performed By: #### 2 [id number] #### [facility] [address] [place] [address] Triglyceride [Mass/Vol] 80 mg/dL Normal <=149 [facility] Comment on above: Performed By: #### 2 [id number] #### [facility] [address] [place] [address] eGFRon 08-30-2024 eGFR 78 mL/min/1.73 m2 Normal >=59 [facility] Comment on above: Performed By: #### 1 [id number] #### [facility] [address] [place] [address] Ambulatory Visit Summaryon 0 08-29-2024 Ambulatory Visit Summary Ambulatory Visit Summary BELKIS FLORES :1950 Visit Date:08/28/2024 Ambulatory Visit Instructions Your Diagnosis Encounter for subsequent annual wellness visit (AWV) in Medicare patient 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 Your Care Team Attending Physician - Brandt Head MD Primary Care Physician - Brandt Head MD This Is Your Medications List aspirin (aspirin 81 mg Oral EC Tab) tizanidine (tiZANidine 2 mg Tab) Procedures Performed Cataract, Surgery. Discharge Vitals Heart Rate (Peripheral) 78 Blood Pressure 110/64 Height 166.7 cm Height 66 in Weight 64.8 kg Weight 142.859 lb BMI 23.32 What to do next Scheduled Follow-Up Appointments 2024 8:40 AM EST With: Where: [address] [address]- Tuesday2025 2:20 PM EST With: Sonido DIAMOND, Brandt Carnes Where: [address] [id number]- Tuesday2025 2:30 PM EST With: Where: [address] [address]- You Need to Complete the Following CBC w/ Auto Diff, Blood, Routine collect, 08/28/24, Order for future visit, Lab Collect, Spasm of muscle of lower back Non-smoker BMI 23.0-23.9, adult, Not Required, Print Label By Order Location Comprehensive Metabolic Panel, Blood, Routine collect, 08/28/24, Order for future visit, Lab Collect, Spasm of muscle of lower back Non-smoker BMI 23.0-23.9, adult, Not Required, Print Label By Order Location Lipid Panel, Blood, Routine collect, 08/28/24, Order for future visit, Lab Collect, Spasm of muscle of lower back Non-smoker BMI 23.0-23.9, adult, Required & Missing, Print Label By Order Location Medications What How Much When Instructions Unchanged aspirin (aspirin 81 mg Oral EC Tab) 1 Tablets By Mouth Every day Unchanged tizanidine (tiZANidine 2 mg Tab) 1 Tablets By Mouth Every 8 hours as needed for Spasm Allergies Cats No Known Medication Allergies Problems Ongoing - Any problem that you are currently receiving treatment for. BMI 23.0-23.9, adult Clavicle enlargement Colon cancer screening Influenza vaccination declined Palsy, cranial nerve, multiple Spasm of muscle of lower back Patient Survey You may receive a survey via text or e-mail asking about your office visit. Please share your experience with us by completing your survey. We appreciate your feedback and thank you for choosing us for your care. Education Materials Breast Self-Awareness Breast self-awareness is knowing how your breasts look and feel. You need to: ??? Check your breasts on a regular basis. ??? Tell your doctor about any changes. Become familiar with the look and feel of your breasts. This can help you catch a breast problem while it is still small and can be treated. You should do breast self-exams even if you have breast implants. What you need: ??? A mirror. ??? A well-lit room. ??? A pillow or other soft object. How to do a breast self-exam Follow these steps to do a breast self-exam: Look for changes 1. Take off all the clothes above your waist. 2. department coordinator front of a mirror in a room with good lighting. 3. Put your hands down at your sides. 4. Compare your breasts in the mirror. Look for any difference between them, such as: ??? A difference in shape. ??? A difference in size. ??? Wrinkles, dips, and bumps in one breast and not the other. 5. Look at each breast for changes in the skin, such as: ??? Redness. ??? Scaly areas. ??? Skin that has gotten thicker. ??? Dimpling. ??? Open sores (ulcers). 6. Look for changes in your nipples, such as: ??? Fluid coming out of a nipple. ??? Fluid around a nipple. ??? Bleeding. ??? Dimpling. ??? Redness. ??? A nipple that looks pushed in (retracted), or that has changed position. Feel for changes 1. Lie on your back. 2. Feel each breast. To do this: ??? Pick a breast to feel. ??? Place a pillow under the shoulder closest to that breast. Put the arm closest to that breast behind your head. ??? Feel the nipple area of that breast using the hand of your other arm. Feel the area with the pads of your three middle fingers by making small circles with your fingers. Use light, medium, and firm pressure. ??? Continue the overlapping circles, moving downward over the breast. Keep making circles with your fingers. Stop when you feel your ribs. ??? Start making circles with your fingers again, this time going upward until you r (more content not included)... Normal [facility] Family Medicine Office/Clini c Noteon 08-29-2024 Family Medicine Office/Clinic Note Family Medicine Office/Clinic Note Chief Complaint Subsequent Medicare Wellness History of Present Illness Performed On: 08/28/2024 15:01 EST by Naima Malin Covid-19, MERS, Ebola Screen *Contact With Person With Highly Contagious Disease Like Ebola/MERS/COVID-19 AND Have One or More of the Symptoms Below : No *Travel to a Country With Wide-Spread Ebola/MERS/COVID-19 in the Past 21 Days AND Have One or More of the Symptoms Below : No Patient Reported Covid-19 Testing : No *Verify Droplet, Contact Precautions for Ebola (Reference for CDC) : N/A *Verify Airborne, Droplet Precautions for MERS/COVID-19 : N/A Naima Malin 08/28/2024 15:01 EST Medicare/Medicaid Summary Patient Counseled : Nutrition, Physical activity Height/Length Measured : 166.7 cm(Converted to: 5 ft 6 in, 65.63 in) Weight Measured : 64.8 kg(Converted to: 142 lb 14 Ounces, 142.860 lb) Body Mass Index Measured : 23.32 kg/m2 Height in Inches : 66 in Weight in Pounds : 142.859 lb Systolic Blood Pressure : 110 mmHg Diastolic Blood Pressure : 64 mmHg Blood Pressure Location : Left arm Blood Pressure Position : Sitting O2 Sat Resting/Exertion Alpha : Resting Peripheral Pulse Rate : 78 bpm SpO2 : 99 % Pain Present : No actual or suspected pain Naima Malin 08/28/2024 15:41 EST Chief Complaint : Subsequent Medicare Wellness Naima Malin 08/28/2024 15:01 EST Hearing and Vision Screening FT FT Whisper Test Comments : no hearing deficts Vision Screen Comments : wears corrective lens. Goes to Dr. Chantell Herring. Naima Malin 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 Location of Advance Directive : Family to bring in copy from home Organ Donation Consent : Yes Naima Malin 08/28/2024 15:01 EST Procedures / Surgeries FT - Procedure History (As Of: 08/28/2024 15:43:36 EST) Anesthesia Minutes: 0 ; Procedure Name: Surgery on macular to fix a wrinkle ; Procedure Minutes: 0 ; Comments: 03/30/2023 13:32 EDT - Jolie Driscoll LPN December 2020 ; Last Reviewed Dt/Tm: 08/28/2024 15:08:20 EST Anesthesia Minutes: 0 ; Procedure Name: Cataract ; Procedure Minutes: 0 ; Comments: 03/30/2023 13:31 EDT - Yamila WINSTONJolie Jean august and september 2021 ; Last Reviewed Dt/Tm: 08/28/2024 15:08:20 EST Family History Family History (As Of: 08/28/2024 15:43:37 EST) Father: Relation: Father ; Gender: Male ; Nomenclature: Alzheimer's disease ; Value: Positive Mother: Relation: Mother ; Gender: Female ; Nomenclature: Acute myocardial infarction ; Value: Positive Nomenclature: Alzheimer's disease ; Value: Positive Medicare/Medicaid Social History FT Social History (As Of: 08/28/2024 15:43:37 EST) Alcohol: Never. (Last Updated: 08/17/2024 14:58:52 UTC by Oswaldo Ortez) Current, 1-2 times per year Comments: 08/28/2024 15:12 - Naima Malin: has an occassional drink once or twice a year. (Last Updated: 08/28/2024 15:12:03 EST by Naima Malin) Tobacco: Never (less than 100 in lifetime) Tobacco Use:. Comments: 08/28/2024 15:12 - Naima Malin: denies use. 03/30/2023 14:33 - Quentin Bustamante: denies (Last Updated: 08/28/2024 15:12:15 EST by Naima Malin) Substance Abuse: Never Comments: 08/28/2024 15:13 - Naima Malin: denies use. (Last Updated: 08/28/2024 15:13:56 EST by Naima Malin) Health Risk Assessment FT HRA little interest or pleasure? : No HRA down, depressed, or hopeless? : No Hazards in your house? : No Fall Risk Past Year : No Worried About Falling : No Use a Cane or Walker? : No Someone Helps You in the Morning : No Fallen or felt dizzy standing up? : No Assistance with personal care? : No Trouble taking meds correctly? : No HRA Pain Present : No Able to walk without help? : Yes Ability to shop w/out help : Yes Prepare your own meals? : Yes Housework without help? : Yes Handle money without help : Yes Track own medications without help? : Yes Overall mood for past four weeks : Pretty well General health rating : Good Someone avail. to help if needed? : Yes, as much as I wanted Phys. & emotional health limit social act? : Not at all Naima Malin - 08/28/2024 15:01 EST Misc Health Risks Grid Sexual problems : Never Trouble eating well : Never Teeth or denture problems : Never Problems using the telephone : Never Naima Malin 08/28/2024 15:01 EST Confident you control health problems : Very confident Difficulties driving your car? : No Seatbelts : I always fasten my seat belt Naima Malin - 08/28/2024 15:01 EST Depression Screening Little Interest, Pleasure in Activities (ref) : Not at all Feeling Down, Depressed, Hopeless : Not at all Initial Depression Screening Score : 0 SCORE Depression Screening Result : Negative Naima Malin 08/28/2024 15:01 EST Social Determinants (PRAPARE) Only Required [place] highlighed in yellow need to be filled out and w (more content not included)... Normal [facility] Comment on above: Result Comment: Elec tronically Signed By: Brandt Head MD\.br\Date and Time Signed: 08/29/24 10:09 EST\.br\Electronically Co-Signed By: Naima Malin\.br\Date and Time Co-Signed: 08/28/24 15:55 EST Ambulatory Visit Summaryon 0 08-28-2024 Ambulatory Visit Summary Ambulatory Visit Summary BELKIS FLORES :1950 Visit Date:08/28/2024 Ambulatory Visit Instructions Your Diagnosis Non-smoker BMI 23.0-23.9, adult Your Care Team Attending Physician - Brandt Head MD Primary Care Physician - Brandt Head MD This Is Your Medications List aspirin (aspirin 81 mg Oral EC Tab) tizanidine (tiZANidine 2 mg Tab) Procedures Performed Cataract, Surgery. Discharge Vitals Temperature (Oral) 36.3 ???C Heart Rate (Peripheral) 78 Respiratory Rate 20 Blood Pressure 110/64 Height 166.7 cm Height 66 in Weight 64.8 kg Weight 142.859 lb BMI 23.32 Medications What How Much When Instructions Unchanged aspirin (aspirin 81 mg Oral EC Tab) 1 Tablets By Mouth Every day Unchanged tizanidine (tiZANidine 2 mg Tab) 1 Tablets By Mouth Every 8 hours as needed for Spasm Allergies Cats No Known Medication Allergies Problems Ongoing - Any problem that you are currently receiving treatment for. Clavicle enlargement Colon cancer screening Influenza vaccination declined Palsy, cranial nerve, multiple Spasm of muscle of lower back Patient Survey You may receive a survey via text or e-mail asking about your office visit. Please share your experience with us by completing your survey. We appreciate your feedback and thank you for choosing us for your care. Normal [facility] Family Medicine Office/Clini c Noteon 08-28-2024 Family Medicine Office/Clinic Note Family Medicine Office/Clinic Note Chief Complaint The patient is here for a wellness visit and discussion of colon cancer screening options. HPI Staff Belkis is a 74 year old female presenting with needing refills on Tizanidine- Only has a couple left She said she only takes it occasionally for back spasms History of Present Illness The patient is a 74-year-old female presenting for a wellness evaluation, primarily focusing on routine health maintenance including colon cancer screening options. She maintains a healthy BMI of 23.0-23.9 and is a non-smoker. Current preventative discussions revolved around colon cancer, where awareness about non-invasive fecal screening and more traditional colonoscopy was imparted, highlighting her concerns about procedural invasiveness. In terms of symptomatology, there is no immediate reporting of adverse symptoms. Nonetheless, working towards preventive wellness, a plan for necessary labs and future screenings is considered a priority. Her previous medical interactions included a back evaluation and an x-ray, opting for non-surgical interventions (muscle relaxants) to manage her recurring back spasms with positive outcomes, reinforcing their continued use. - Colon cancer screening options were discussed, including colonoscopy and fecal testing. - Evaluated the importance of preventative screenings. - Pulse, blood pressure, and BMI were assessed and deemed satisfactory. - Plan for routine lab work to ensure baseline health metrics are monitored. Review of Systems PHQ Score Initial Depression Screen Score: 0 SCORE Physical Exam Vitals & Measurements T: 36.3 ???C(Oral) HR: 78(Peripheral) RR: 20 BP: 110/64 SpO2: 99% HT: 66 in HT: 166.7 cm WT: 64.8 kg WT: 142.859 lb BMI: 23.32 General: alert, no acute distress ENMT: oral mucosa moist Cardiovascular: Regular rate and rhythm, normal peripheral perfusion Respiratory: Lungs clear to auscultation, respirations non labored Extremities: no deformity, no trauma Neurological: oriented x 4, level of consciousness appropriate for age, CN II-XII intact, motor strength equal & normal bilaterally, speech normal Abdomen: Soft, Non-tender, Non-distended, + Bowel sounds Assessment/Plan 1. Spasm of muscle of lower back (M62.830: Muscle spasm of back) Tizanidine 2mg q8. Follow up As needed. Ordered: CBC w/ Auto Diff Comprehensive Metabolic Panel Lipid Panel 2. Non-smoker (Z78.9: Other specified health status) As a non-smoker, the patient's risk profile is favorable for diseases linked to smoking. Continued avoidance of tobacco products is affirmed as beneficial, with regular recognition and reinforcement during health checkups. Ordered: Body Mass Index (BMI) documented 3008F CBC w/ Auto Diff Comprehensive Metabolic Panel Current tobacco non-user 1036F Depression Screening Negative 3352F Influenza immunization status assessed 1030F Lipid Panel Most recent diastolic blood pressure <80 mm Hg 3078F Patient screen for fall risk: no falls in last year or 1 fall with no injury in last year 1101F Review of all meds by a prescribing practitioner or clinical pharmacist documented in EHR 1160F Systolic BP <130 mm Hg (Most Recent) 3074F 3. BMI 23.0-23.9, adult (Z68.23: Body mass index [BMI] 23.0-23.9, adult) Given the patient's satisfactory BMI and other vital signs, continued annual monitoring is advised in conjunction with maintaining a balanced diet and appropriate physical activity regimen to ensure stable health outcomes. Ordered: Body Mass Index (BMI) documented 3008F CBC w/ Auto Diff Comprehensive Metabolic Panel Current tobacco non-user 1036F Depression Screening Negative 3352F Influenza immunization status assessed 1030F Lipid Panel Most recent diastolic blood pressure <80 mm Hg 3078F Patient screen for fall risk: no falls in last year or 1 fall with no injury in last year 1101F Review of all meds by a prescribing practitioner or clinical pharmacist documented in EHR 1160F Systolic BP <130 mm Hg (Most Recent) 3074F Orders: tizanidine, 2 mg = 1 tab(s), Oral, q8hr, PRN Spasm, # 30 tab(s), Refills(s) 0, Pharmacy: [facility], 166.7, cm, 08/28/24 14:31:00 EST, Height/Length Dosing, 64.8, kg, 08/28/24 14:31:00 EST, Weight Dosing 74-year-old female with a history of a healthy BMI presenting for a wellness evaluation. Focus areas include preventative health measures, particularly colon cancer screening due to its prevalence in her age group. Her chronic back discomfort is effectively managed with medication, highlighting the need for continued therapy while monitoring for worsening symptoms. During the visit, I discussed the importance of early detection and screening for colon cancer, noting its significant risk at this stage of the patient's life. Several options were mentioned, including both invasive procedures like colonoscopy and non-invasive tests via fecal samples. I clarified the benefits, risks, and the (more content not included)... Normal [facility] Comment on above: Result Comment: Elec tronically Signed By: Brandt Head MD\.br\Date and Time Signed: 08/28/24 15:09 EST Ambulatory Visit Summaryon 0 08-17-2024 Ambulatory Visit Summary Ambulatory Visit Summary BELKIS FLORES :1950 Visit Date:08/17/2024 Ambulatory Visit Instructions Your Diagnosis BMI 23.0-23.9, adult Non-smoker Your Care Team Attending Physician - Karla Salinas Primary Care Physician - Brandt Head MD This Is Your Medications List aspirin (aspirin 81 mg Oral EC Tab) tizanidine (tiZANidine 2 mg Tab) Procedures Performed Cataract, Surgery. Discharge Vitals Heart Rate (Peripheral) 78 Respiratory Rate 18 Blood Pressure 130/74 Height 166.7 cm Height 66 in Weight 64.2 kg Weight 141.537 lb BMI 23.1 What to do next Scheduled Follow-Up Appointments Tuesday 1:00 PM EST With: Brandt Head MD Where: [address] [address]- Medications What How Much When Instructions Unchanged aspirin (aspirin 81 mg Oral EC Tab) 1 Tablets By Mouth Every day Unchanged tizanidine (tiZANidine 2 mg Tab) 1 Tablets By Mouth Every 8 hours as needed for Spasm Allergies Cats No Known Medication Allergies Problems Ongoing - Any problem that you are currently receiving treatment for. Colon cancer screening Influenza vaccination declined Palsy, cranial nerve, multiple Spasm of muscle of lower back Patient Survey You may receive a survey via text or e-mail asking about your office visit. Please share your experience with us by completing your survey. We appreciate your feedback and thank you for choosing us for your care. Normal Valenzuela [facility] Family Medicine Office/Clini c Noteon 08-17-2024 Family Medicine Office/Clinic Note Family Medicine Office/Clinic Note HPI Staff Please speak with patient about scheduling an AWV. Belkis is a 73 year old female presenting to discuss Collar bone Pt denies having any pain but concerned the right side of collar bone sticks out further than the left side. noticed this back in 10/2023 slowly has just been getting more noticeable. History of Present Illness pt presents today with right clavicle that sticks out further than left. no pain Review of Systems PHQ Score Initial Depression Screen Score: 0 SCORE Physical Exam Vitals & Measurements HR: 78(Peripheral) RR: 18 BP: 130/74 SpO2: 98% HT: 66 in HT: 166.7 cm WT: 64.2 kg WT: 141.537 lb BMI: 23.1 General: alert, no acute distress ENMT: oral mucosa moist, no pharyngeal erythema or exudate Cardiovascular: regular rate and rhythm, normal peripheral perfusion Respiratory: Lungs CTA, respirations non labored Extremities: no deformity, no trauma Neurological: oriented x 4, LOC appropriate for age, CN II-XII intact, motor strength equal & normal bilaterally, speech normal right clavicle appears to have a protruding calcification, it does not hurt, it is not moveable. Assessment/Plan 1. 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 she noticed is in October. feels it has gotten larger more recently. a dime sized area of her right clavicle is protruding more than the left. the area is not painful, it is not moveable. feels more like a calcification. will order x ray for further evaluation. order faxed to [facility] 2. BMI 23.0-23.9, adult (Z68.23: Body mass index [BMI] 23.0-23.9, adult) BMI education given 3. Non-smoker (Z78.9: Other specified health status) continue not smoking Follow-up No qualifying data available Problem List/Past Medical History Ongoing Clavicle enlargement Colon cancer screening Influenza vaccination declined Palsy, cranial nerve, multiple Spasm of muscle of lower back Historical No qualifying data Procedure/Surgical History Cataract, Surgery. Medications aspirin 81 mg Oral EC Tab, 81 mg= 1 tab(s), Oral, Daily, 1 refills tiZANidine 2 mg Tab, 2 mg= 1 tab(s), Oral, q8hr, PRN Allergies Cats No Known Medication Allergies Social History Alcohol Never., 08/17/2024 Substance Abuse Never., 08/17/2024 Tobacco Never (less than 100 in lifetime) Tobacco Use:., 08/17/2024 Family History Acute myocardial infarction: Mother. Alzheimer's disease: Mother and Father. Immunizations Vaccine Date Status Comments influenza virus vaccine, inactivated - Not Given Postpone due to refusal diphtheria/pertussis , acel/tetanus adult 03/07/2020 Recorded Normal [facility] Comment on above: Result Comment: Elec tronically Signed By: Karla Salinas\.br\Date and Time Signed: 08/17/24 11:31 EST Ophthalmic Eye Examon 2022 Ophthalmic Eye Exam DOCUMENT REVIEWED BY: Cooper Mendoza MD DOCUMENT SIGNED ELECTRONICALLY BY Cooper Mendoza MD ON 03/15/2023 02:51:24 PM [facility] [address] [id number] [facility]. [address] [place], [address] THIS DOCUMENT WAS CREATED ON: 03/15/2023 02:51:15 PM BY: Cooper Ramos performed FHQUI-Wpby-sc Exam Date: Wednesday, March 15, 2023 PATIENT NAME: BELKIS FLORES DATE: 1950 AGE: 72 GENDER: Female [...] 14 DATE-TIME: 03/15/2023 1:49:53 PM 03/15/2023 1:49:53 [employer]: [email or web address] CONFRONTATION VF Full to count fingers Full to count fingers EXTERNAL EYE EXAM: LID: Good Position Good Position PUPIL: 5 to 3 mm, no RAPD 5 to 3 mm, no RAPD ADNEXA: Normal Normal MUSCLE BALANCE: Ortho OCULAR MOTILITY: Full. No internuclear ophthalmoplegia. No nystagmus. STEREO ONE-THIRD METER: -Fly 3/3 8/9 COLOR [place] ISHIHARA OUT OF [...] CUP TO DISC: .4 .4 OPTIC DISC: Teresita and sharp Teresita and sharp VITREOUS: Clear Clear MACULA: drusen geographic atrophy central VESSELS: Normal Normal PERIPHERY: No tears, breaks, or holes No tears, breaks, or holes Impression 1 E05.00 Graves disease-Stable 2 H53.2 Diplopia-Stable Plan 09/05/2022 MRI brain without contrast, by report from [facility], shows ?No acute intracranial process.? 09/05/2022 ultrasound duplex carotid arteries, by report from [facility], shows ?0-49% flow stenosis bilateral internal carotid arteries? 09/05/2022 CTA head AND neck, by report from [facility], shows ?No large vessel occlusion or high-grade stenosis in the head or neck.? 09/05/2022 CT head without contrast, by report from [facility], shows ?No acute intracranial abnormality? 05/26/2016 CT head without contrast, by report from [facility], shows ?1. No acute or suspicious intracranial [...] IMMUNOGLOBon THYROID STIM IMMUNOGLOB <1.0 Normal <=1.3 [facility] Comment on above: Result Comment: Test Performed by: [facility] [address] [place] [address] A And P Technician: Aurelio Saunders M.D. Ph.D.; CLIA# [id number] Performed By: #### T SIG #### [facility] [address] [place] [address] ACHR MODULATING ABon 11-12-2 023 ACHR MODULATING AB 0 % Normal <=45 [facility] Comment on above: Result Comment: INTE RPRETIVE [...] developed and its performance characteristics determined by [facility]. It has not been cleared or approved by the US Food and Drug Administration. This test was performed in a CLIA certified laboratory and is intended for clinical purposes. Performed By: [facility] [address] [place] [address] Retail Marketing Specialist: Dominik Agustin MD, PhD Performed By: #### A CRMA #### [facility] [address] [place] [address] ACETYLCHOL.RECEPTOR BINDING ABon 11-11-2022 ACETYLCHOL.RECEPTOR BINDING AB 0.0 nmol/L Normal 0.0-0.4 [facility] Comment on above: Result Comment: INTE RPRETIVE [...] developed and its performance characteristics determined by [facility]. It has not been cleared or approved by the US Food and Drug Administration. This test was performed in a CLIA certified laboratory and is intended for clinical purposes. Performed By: [facility] [address] [place] [address] Retail Marketing Specialist: Dominik Agustin MD, PhD Performed By: #### A CHR #### [address] [address] ACHR BLOCKING ABo ACHR BLOCKING AB 4 % Normal 0-26 [facility] Comment on above: Result Comment: INTE RPRETIVE [...] developed and its performance characteristics determined by [facility]. It has not been cleared or approved by the US Food and Drug Administration. This test was performed in a CLIA certified laboratory and is intended for clinical purposes. Performed By: [facility] [address] [place] [address] Retail Marketing Specialist: Dominik Agustin MD, PhD Performed By: #### A CRBL #### [address] [address] THYROTROPIN RECEPTOR ABo THYROTROPIN RECEPTOR AB <0.80 Normal <=1.75 [facility] Comment on above: Result Comment: Perf ormed By: [facility] [address] [place] [address] Retail Marketing Specialist: Dominik Agustin MD, PhD Performed By: #### T HYRA #### [facility] [address] [place] [address] ANTITHYROID PEROX. ABon 05- ANTITHYROID PEROX. AB <28 Normal [facility] Comment on above: Result Comment: Nega tive: <=60 U/mL Positive: >60 U/mL Performed By: #### T POA2 #### [facility] [address] [place] [address] Ophthalmic Eye Examon 2022 Ophthalmic Eye Exam DOCUMENT REVIEWED BY: Cooper Mendoza MD DOCUMENT SIGNED ELECTRONICALLY BY Cooper Mendoza MD ON 11/09/2022 10:06:41 AM [facility] [address] [place], [address] THIS DOCUMENT WAS CREATED ON: 11/09/2022 10:06:34 AM BY: Cooper Fernandez performed VGVKG-Fimz-mj Exam Date: Wednesday, November 09, 2022 PATIENT NAME: BELKIS FLORES DATE: 1950 AGE: 72 GENDER: Female [...] The first 2 episodes had no pain. Neuro-ophthalmologis t Dr. 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 The third episode was horizontal with onset 09/05/2022. She went to the emergency department at [facility]. She did have left pain leading up to it. She denies ptosis with all episodes. She was referred by [facility] Dot Kowalski. By the 09/15/2022 note, she had been seen for diplopia 09/07/2022. She had then seen Dr. Bj Patton, a neuro-ophthalmologis t in [place], with CN III palsy diagnosed by that [...] DATE-TIME: 11/09/2022 9:08:16 AM 11/09/2022 9:08:16 AM DIRECTOR OF SPEECH PATHOLOGY: [id number] [id number] CONFRONTATION VF Full to count fingers Full [...] CUP TO DISC: .4 .4 OPTIC DISC: Teresita and sharp Teresita and sharp VITREOUS: Clear Clear MACULA: drusen [...] MRI brain without contrast, by report from [facility], shows ?No acute intracranial process.? 09/05/2022 ultrasound duplex carotid arteries, by report from [facility], shows ?0-49% flow stenosis bilateral internal carotid arteries? 09/05/2022 CTA head AND neck, by report from [facility], shows ?No large vessel occlusion or high-grade stenosis in the head or neck.? 09/05/2022 CT head without contrast, by report from [facility], shows ?No acute intracranial abnormality? 05/26/2016 CT head without contrast, by report from [facility], shows ?1. No acute or suspicious intracranial abnormality. 2. Right maxillary acute sinusitis.? 09/06/2022 lipid panel with LDL 104.6. HbA1c 5.6%. 09/05/2022 ESR 10. CRP <0.2 mg/dL. TS (more content not included)... Normal [facility] THYROXINE,FREEon 11-09-2022 THYROXINE,FREE 0.89 ng/dL Normal 0.61 - 1.12 [facility] Comment on above: Result Comment: Thyr oxine Free testing is performed using different testing methodology at [facility] than at other [facility]. Direct result comparisons should only be made [...] draw. Performed By: #### T 4FRE #### [address] [id number] TRIIODOTHYRONINE,FREEon 10-25 TRIIODOTHYRONINE,FR EE 2.8 pg/mL Normal 2.3 - 4.2 [facility] Comment on above: Performed By: #### T 3FRE #### [facility] [address] [place] [address] TSHon 11-09-2022 TSH Qn 0.88 m[IU]/L Normal 0.44 - 3.98 [facility] Comment on above: Result Comment: TSH testing is performed using different testing methodology at [facility] than at other [facility]. Direct result comparisons should only be made within the same method. Performed By: #### T SH2 #### [address] [id number] CBC AUTO DIFFon 09-06-2022 BASO # 0.0 103/ul Normal 0.0-0.1 [facility] Comment on above: Performed By: #### C BC ####[facility] [address] [place], [place] [address]Dr. Kerry Cassidy Basophils/100 WBC (Bld) 0.6 % Normal 0.2-2.0 [facility] Comment on above: Performed By: #### C BC ####[facility] [address] [place] [id number]. Kerry Cassidy EO # 0.2 103/ul Normal 0.0-0.7 [facility] Comment on above: Performed By: #### C BC ####[facility] [address] [place], [place] [address]Dr. Kerry Cassidy Eosinophils/100 WBC (Bld) 3.2 % Normal 0.9-7.0 [facility] Comment on above: Performed By: #### C BC ####[facility] [address] [place] [address]Dr. Kerry Cassidy Erythrocyte distribution width (RBC) [Ratio] 12.2 % Normal 11.0-15.0 [facility] Comment on above: Performed By: #### C BC ####[facility] Ich[address] [place] [address]Dr. Krery Cassidy Hematocrit (Bld) [Volume fraction] 39.3 % Normal 36.0-48.0 [facility] Comment on above: Performed By: #### C BC ####[facility] [address] [place], [place] [address]Dr. Kerry Cassidy Hemoglobin (Bld) [Mass/Vol] 13.2 g/dL Normal 12.0-16.0 [facility] Comment on above: Performed By: #### C BC ####[facility] [address] [place], [place] [address]Dr. Kerry Cassidy IG # 0.00 10e3/ul Normal 0.00-0.03 [facility] Comment on above: Performed By: #### C BC ####[facility] [address] [place], [place] [address]Dr. Kerry Cassidy IG % 0.0 % Normal 0.0-0.5 [facility] Comment on above: Performed By: #### C BC ####[facility] [address] [place], [place] [address]Dr. Kerry Cassidy LYMPH # 1.7 103/ul Normal 1.2-3.8 [facility] Comment on above: Performed By: #### C BC ####[facility] [address] [place], [place] [address]Dr. Kerry Cassidy Lymphocytes/100 WBC (Bld) 36.9 % Normal 20.5-60.0 [facility] Comment on above: Performed By: #### C BC ####[facility] [address] [place], [place] [address]Dr. Kerry Khanh MANUAL DIFF REQ NO Normal [facility] Comment on above: Performed By: #### C BC ####[facility] [address] [place], [place] [address]Dr. Kerry Khanh MCH (RBC) [Entitic mass] 31.3 pg Normal 26.7-34.0 [facility] Comment on above: Performed By: #### C BC ####[facility] [address] [place] [address]DrCharanjit Cassidy MCHC (RBC) [Mass/Vol] 33.6 g/dL Normal 29.9-35.2 [facility] Comment on above: Performed By: #### C BC ####[facility] [address] [place], [place] [address]DrCharanjit Cassidy MCV (RBC) [Entitic vol] 93.1 fL Normal 81.0-99.0 [facility] Comment on above: Performed By: #### C BC ####[facility] [address] [place], [place] [address]DrCharanjit Cassidy MONO # 0.5 103/ul Normal 0.3-0.8 [facility] Comment on above: Performed By: #### C BC ####[facility] [address] [place], [place] [address]DrCharanjit Cassidy Monocytes/100 WBC (Bld) 11.2 % Normal 1.7-12.0 [facility] Comment on above: Performed By: #### C BC ####[facility] [address] [place], [place] [address]DrCharanjit Cassidy NEUT # 2.2 103/ul Normal 1.4-6.5 [facility] Comment on above: Performed By: #### C BC ####[facility] [address] [place], [place] [address]DrCharanjit Cassidy Neutrophils/100 WBC (Bld) 48.1 % Normal 43.0-75.0 The [facility] Comment on above: Performed By: #### C BC ####[facility] [address] [place], [place] [address]DrCharanjit Cassidy Platelet mean volume (Bld) [Entitic vol] 8.9 fL Critically low 9.5-13.5 The [facility] Comment on above: Performed By: #### C BC ####[facility] [address] [place], [place] [address]Dr. Kerry Cassidy PLT 266 103/ul Normal 150-450 [facility] Comment on above: Performed By: #### C BC ####[facility] [address] [place], [place] [address]Up. Kerry Cassidy RBC 4.22 106/ul Normal 4.20-5.40 [facility] Comment on above: Performed By: #### C BC ####[facility] [address] [place], [place] [address]Cs. Kerry Cassidy WBC 4.6 103/ul Normal 4.0-11.0 [facility] Comment on above: Performed By: #### C BC ####[facility] [address] [place], [place] [address]Bn. Kerry Cassidy ECHOCARDIO M/2D COMPLETEon 0 09-06-2022 ECHOCARDIO M/2D COMPLETE Patient: BELKIS FLORES Exam Date: 09/06/2022 : 1950 Gender:F Ordering : DR ALYSON REHMAN . Admission #: [id number] Family : Order #: [id number] CLICK HERE TO VIEW EXAM ECHOCARDIOGRAM REPORT [...] Archuleta M.D. on 09/07/2022 at 11:48 Normal [facility] GLYCOHEMOGLOBIN A1Con 2022 ADA RECOMMENDATION SEE BELOW Normal [facility] Comment on above: Result Comment: ADA RECOMMENDED LIMIT 4.0 - 6.0 ADA THERAPEUTIC TARGET < 7.0 ACTION SUGGESTED > 7.0 Performed By: #### A 1C ####[facility] [address] [place] [address]Dr. Kerry Cassidy Glucose [Mass/Vol] 114 mg/dL Normal [facility] Comment on above: Performed By: #### A 1C ####[facility] [address] [place] [address]Dr. Kerry Cassidy HbA1c (Bld) [Mass fraction] 5.6 % Normal 4.5-6.2 [facility] Comment on above: Performed By: #### A 1C ####[facility] [address] [place] [address]Dr. Kerry Cassidy LIPID PROFILEon 09-06-2022 CHOL-HDL RATIO NORM SEE BELOW Normal [facility] Comment on above: Result Comment: 3.3 - 4.4 LOW RISK 4.4 - 7.1 AVERAGE RISK 7.1 - 11.0 MODERATE RISK >11.0 HIGH RISK Performed By: #### L IPID ####[facility] [address] [place], [place] [address]Dr. Kerry Cassidy Cholesterol [Mass/Vol] 202 mg/dL Critically high <=200 [facility] Comment on above: Performed By: #### L IPID ####[facility] [address] [place] [address]Dr. Kerry Cassidy Cholesterol in HDL [Mass/Vol] 91 mg/dL Critically high 40-60 [facility] Comment on above: Performed By: #### L IPID ####[facility] [address] [place] [id number]. Kerry Cassidy Cholesterol in LDL [Mass/Vol] 104.6 mg/dL Normal [facility] Comment on above: Performed By: #### L IPID ####[facility] [address] [place] [id number]. Kerry Cassidy Cholesterol.total/C holesterol in HDL [Mass ratio] 2.2 {ratio} Normal [facility] Comment on above: Performed By: #### L IPID ####[facility] [address] [place] [address]Dr. Kerry Cassidy HDL NORMAL > or = 60 mg/dl - LOW CARDIOVASCULAR RISK <40 mg/dl - HIGH CARDIOVASCULAR RISK Normal [facility] Comment on above: Performed By: #### L IPID ####[facility] [address] [place] [address]Dr. Kerry Cassidy LDL CALC NORMAL SEE BELOW Normal [facility] Comment on above: Result Comment: <100 mg/dl OPTIMAL 100 - 129 mg/dl NEAR OR ABOVE OPTIMAL 130 - 159 mg/dl BORDERLINE HIGH 160 - 189 mg/dl HIGH >190 mg/dl VERY HIGH Performed By: #### L IPID ####[facility] [address]fc[address] [place] [id number]. Kerry Cassidy Triglyceride [Mass/Vol] 32 mg/dL Normal <=150 [facility] Comment on above: Performed By: #### L IPID ####[facility] [address] [place] [id number]. Kerry Cassidy VLDL CALC 6.4 mg/dL Normal [facility] Comment on above: Performed By: #### L IPID ####[facility] [address]ucj[address] [place] [id number]. Kerry Cassidy MRI BRAIN WO CONon MRI [...] ANISA CHINO Date: 2022-09-06 08:25 Normal [facility] PROF 14(COMP METB)on 023 Albumin [Mass/Vol] 3.6 g/dL Normal 3.4-5.0 [facility] Comment on above: Performed By: #### C MP ####[facility] [address] [place] [address]Dr. Kerry Cassidy Albumin/Globulin [Mass ratio] 1.3 {ratio} Normal [facility] Comment on above: Performed By: #### C MP ####[facility] [address] [place] [address]Dr. Kerry Cassidy ALP [Catalytic activity/Vol] 84 U/L Normal 46-116 [facility] Comment on above: Performed By: #### C MP ####[facility] [address] [place] [address]Dr. Kerry Cassidy ALT [Catalytic activity/Vol] 33 U/L Normal 14-59 [facility] Comment on above: Performed By: #### C MP ####[facility] [address] [place] [address]Dr. Kerry Cassidy Anion gap [Moles/Vol] 10.9 mmol/L Normal [facility] Comment on above: Performed By: #### C MP ####[facility] [address] [place] [address]Dr. Kerry Cassidy AST [Catalytic activity/Vol] 26 U/L Normal 15-37 [facility] Comment on above: Performed By: #### C MP ####[facility] [address] [place] [id number]. Kerry Cassidy Bilirubin [Mass/Vol] 1.1 mg/dL Critically high 0.2-1.0 [facility] Comment on above: Performed By: #### C MP ####[facility] [address] [place] [id number]. Kerry Cassidy Calcium [Mass/Vol] 8.8 mg/dL Normal 8.5-10.1 [facility] Comment on above: Performed By: #### C MP ####[facility] [address] [place] [address]Dr. Kerry Cassidy Chloride [Moles/Vol] 106 mmol/L Normal 98-107 [facility] Comment on above: Performed By: #### C MP ####[facility] [address] [place] [address]Dr. Kerry Cassidy CO2 [Moles/Vol] 26.9 mmol/L Normal 21.0-32.0 [facility] Comment on above: Performed By: #### C MP ####[facility] [address] [place], [place] [address]Dr. Kerry Cassidy Creatinine [Mass/Vol] 0.60 mg/dL Normal 0.55-1.02 [facility] Comment on above: Performed By: #### C MP ####[facility] [address] [place] [address]Dr. Kerry Khanh EGFR-AF KYRGYZ >60 Normal >=60 [facility] Comment on above: Performed By: #### C MP ####[facility] [address] [place] [id number]. Kerry Khanh EGFR-NON AF KYRGYZ >60 Normal >=60 [facility] Comment on above: Performed By: #### C MP ####[facility] [address] [place] [address]Dr. Kerry Khanh Globulin (S) [Mass/Vol] 2.8 g/dL Normal [facility] Comment on above: Performed By: #### C MP ####[facility] [address] [place] [id number]. Kerry Cassidy Glucose [Mass/Vol] 98 mg/dL Normal 74-106 [facility] Comment on above: Performed By: #### C MP ####[facility] [address] [place] [id number]. Kerry Cassidy Potassium [Moles/Vol] 3.8 mmol/L Normal 3.5-5.1 [facility] Comment on above: Performed By: #### C MP ####[facility] [address] [place] [id number]. Kerry Cassidy Protein [Mass/Vol] 6.4 g/dL Normal 6.4-8.2 [facility] Comment on above: Performed By: #### C MP ####[facility] [facility] [id number] [place] [id number]. Kerry Cassidy Sodium [Moles/Vol] 140 mmol/L Normal 136-145 [facility] Comment on above: Performed By: #### C MP ####[facility] [id number] [place] [id number]. Kerry Cassidy Urea nitrogen [Mass/Vol] 10.0 mg/dL Normal 7.0-18.0 [facility] Comment on above: Performed By: #### C MP ####[facility] [id number] [place] [id number]. Kerry Cassidy Urea nitrogen/Creatinine [Mass ratio] 16.7 mg/mg Normal [facility] Comment on above: Performed By: #### C MP ####[facility] [id number] [place] [id number]. Kerry Cassidy US CAROTID ART BILon 023 [...] MIGUEL ÁNGEL WOOD Date: 2022-09-06 09:23 Normal [facility] BNPon 09-05-2022 Natriuretic peptide B (Bld) [Mass/Vol] 107.0 pg/mL Normal <=900.0 [facility] Comment on above: Performed By: #### C RP, CMADM, CMP, TSH, BNP #### [facility] [address] [place] [address] Dr. Kerry Cassidy CARDIAC BEVERLY ADMITon 023 CK [Catalytic activity/Vol] 106 U/L Normal 26-192 [facility] Comment on above: Performed By: #### C RP, CMADM, CMP, TSH, BNP #### [facility] [address] [place] [address] Dr. Kerry Cassidy CK.MB [Mass/Vol] 2.34 ng/mL Normal <=3.60 [facility] Comment on above: Performed By: #### C RP, CMADM, CMP, TSH, BNP #### [facility] [address] [place] [address] Dr. Kerry Cassidy HSTROP 5.8 pg/mL Normal 4.0-51.3 [facility] Comment on above: Result Comment: CUT- OFF POINTS HAVE BEEN ESTABLISHED BASED ON THE FOURTH UNIVERSAL DEFINITIONS OF MYOCARDIAL INFARCTION. THE UPPER REFERENCE LIMIT (URL) OF TROPONIN, DEFINED THE 99TH PERCENTILE OF cTnI DISTRIBUTION IN A REFERENCE POPULATION, HAS BEEN CONFIRMED THE DECISION THRESHOLD FOR OH DIAGNOSIS. Performed By: #### C RP, CMADM, CMP, TSH, BNP #### [facility] [address] [place] [address] Dr. Kerry Cassidy PAMELA 34 ng/mL Normal 9-82 The [facility] Comment on above: Performed By: #### C RP, CMADM, CMP, TSH, BNP #### [facility] [address] [place] [address] Dr. Kerry Cassidy CBC AUTO DIFFon 09-05-2022 BASO # 0.0 103/ul Normal 0.0-0.1 [facility] Comment on above: Performed By: #### C BC #### [facility] [address] [place] [address] Dr. Kerry Cassidy Basophils/100 WBC (Bld) 0.6 % Normal 0.2-2.0 [facility] Comment on above: Performed By: #### C BC #### [facility] [address] [place] [address] Dr. Kerry Cassidy EO # 0.0 103/ul Normal 0.0-0.7 [facility] Comment on above: Performed By: #### C BC #### [facility] [address] [place] [address] Dr. Kerry Cassidy Eosinophils/100 WBC (Bld) 0.8 % Critically low 0.9-7.0 [facility] Comment on above: Performed By: #### C BC #### [facility] [address] [place] [address] Dr. Kerry Cassidy Erythrocyte distribution width (RBC) [Ratio] 12.2 % Normal 11.0-15.0 [facility] Comment on above: Performed By: #### C BC #### [facility] [address] [place] [address] Dr. Kerry Cassidy Hematocrit (Bld) [Volume fraction] 42.1 % Normal 36.0-48.0 [facility] Comment on above: Performed By: #### C BC #### [facility] [address] [place] [address] Dr. Kerry Cassidy Hemoglobin (Bld) [Mass/Vol] 14.2 g/dL Normal 12.0-16.0 [facility] Comment on above: Performed By: #### C BC #### [facility] [address] [place] [address] Dr. Kerry Cassidy IG # 0.01 10e3/ul Normal 0.00-0.03 [facility] Comment on above: Performed By: #### C BC #### [facility] [address] [place] [address] Dr. Kerry Cassidy IG % 0.2 % Normal 0.0-0.5 [facility] Comment on above: Performed By: #### C BC #### [facility] [address] [place] [address] Dr. Kerry Cassidy LYMPH # 1.4 103/ul Normal 1.2-3.8 [facility] Comment on above: Performed By: #### C BC #### [facility] [address] [place] [address] Dr. Kerry Cassidy Lymphocytes/100 WBC (Bld) 28.1 % Normal 20.5-60.0 [facility] Comment on above: Performed By: #### C BC #### [facility] [address] [place] [address] Dr. Kerry Cassidy MANUAL DIFF REQ NO Normal [facility] Comment on above: Performed By: #### C BC #### [facility] [address] [place] [address] Dr. Kerry Cassidy MCH (RBC) [Entitic mass] 32.1 pg Normal 26.7-34.0 [facility] Comment on above: Performed By: #### C BC #### [facility] [address] [place] [address] Dr. Kerry Cassidy MCHC (RBC) [Mass/Vol] 33.7 g/dL Normal 29.9-35.2 [facility] Comment on above: Performed By: #### C BC #### [facility] [address] [place] [address] Dr. Kerry Cassidy MCV (RBC) [Entitic vol] 95.0 fL Normal 81.0-99.0 [facility] Comment on above: Performed By: #### C BC #### [facility] [address] [place] [address] Dr. Kerry Cassidy MONO # 0.4 103/ul Normal 0.3-0.8 The [facility] Comment on above: Performed By: #### C BC #### [facility] [address] [address] [address] Kerry Cassidy Monocytes/100 WBC (Bld) 7.2 % Normal 1.7-12.0 [facility] Comment on above: Performed By: #### C BC #### [facility] [address] [address] [address] Kerry Cassidy NEUT # 3.1 103/ul Normal 1.4-6.5 [facility] Comment on above: Performed By: #### C BC #### [facility] [address] [place] [address] Dr. Kerry Cassidy Neutrophils/100 WBC (Bld) 63.1 % Normal 43.0-75.0 [facility] Comment on above: Performed By: #### C BC #### [facility] [address] [place] [address] Dr. Keryr Cassidy Platelet mean volume (Bld) [Entitic vol] 8.8 fL Critically low 9.5-13.5 [facility] Comment on above: Performed By: #### C BC #### [facility] [address] [place] [address] Dr. Kerry Cassidy PLT 287 103/ul Normal 150-450 The [facility] Comment on above: Performed By: #### C BC #### [facility] [address] [place] [address] Dr. Kerry Cassidy RBC 4.43 106/ul Normal 4.20-5.40 The [facility] Comment on above: Performed By: #### C BC #### [facility] [address] [place] [address] Dr. Kerry Cassidy WBC 5.0 103/ul Normal 4.0-11.0 The [facility] Comment on above: Performed By: #### C BC #### [facility] [address] [place] [address] Dr. Kerry Cassidy CRPon 09-05-2022 CRP [Mass/Vol] mg/L Normal <=1.0 [facility] Comment on above: Performed By: #### C RP, CMADM, CMP, TSH, BNP #### [facility] [address] [address] HEAD WO CONon [...] circulation: Distal vertebral arteries, basilar trunk and water reuse program manager are normal in caliber. Proximal SCAs, AICAs and PICAs are patent. No vessel cut off, filling defect, significant focal narrowing or evidence of aneurysm. Opacified dural venous sinuses and major deep and superficial draining veins are patent. IMPRESSION: No large vessel occlusion or high-grade stenosis in the head or neck. Electronically authenticated by: CHINTAN PEREA Date: 2022-09-05 15:55 Normal The [facility] CT STROKE HEAD WOon 09-06-[address] [...] MIGUEL ÁNGEL WOOD Date: 2022-09-05 14:03 Normal The [facility] Covid-19 PCR (CVDTB)on 08-25 SARS-CoV-2 (COVID-19) RNA RAJESH+probe Ql (Unsp spec) Not detected Normal NOT DETECTED The [facility] Comment on above: Result Comment: When diagnostic [...] for this test is supported by the Assistant Professor Of Anthropology of Health and Human Service's declaration that [...] be used). Performed By: #### C VDTBH ####[facility] [id number] [place] [id number]. Kerry Cassidy LACTATE/LACTIC ACIDon 2022 Lactate [Moles/Vol] 1.7 mmol/L Normal 0.4-2.0 [facility] Comment on above: Performed By: #### L ACT ####[facility] [address] [place] [id number] Cassidy PROF 14(COMP METB)on 03-12-2 023 Albumin [Mass/Vol] 4.3 g/dL Normal 3.4-5.0 [facility] Comment on above: Performed By: #### C RP, CMADM, CMP, TSH, BNP #### [facility] [address] [place] [address] Dr. Kerry Cassidy Albumin/Globulin [Mass ratio] 1.4 {ratio} Normal [facility] Comment on above: Performed By: #### C RP, CMADM, CMP, TSH, BNP #### [facility] [address] [place] [address] Dr. Kerry Cassidy ALP [Catalytic activity/Vol] 107 U/L Normal 46-116 The [facility] Comment on above: Performed By: #### C RP, CMADM, CMP, TSH, BNP #### [facility] [address] [place] [address] Dr. Kerry Cassidy ALT [Catalytic activity/Vol] 41 U/L Normal 14-59 [facility] Comment on above: Performed By: #### C RP, CMADM, CMP, TSH, BNP #### [facility] [address] [place] [address] Dr. Kerry Cassidy Anion gap [Moles/Vol] 11.2 mmol/L Normal [facility] Comment on above: Performed By: #### C RP, CMADM, CMP, TSH, BNP #### [facility] [address] [place] [address] Dr. Kerry Cassidy AST [Catalytic activity/Vol] 33 U/L Normal 15-37 The [facility] Comment on above: Performed By: #### C RP, CMADM, CMP, TSH, BNP #### [facility] [address] [place] [address] Dr. Kerry Cassidy Bilirubin [Mass/Vol] 0.7 mg/dL Normal 0.2-1.0 The [facility] Comment on above: Performed By: #### C RP, CMADM, CMP, TSH, BNP #### [facility] [address] [place] [address] Dr. Kerry Cassidy Calcium [Mass/Vol] 9.4 mg/dL Normal 8.5-10.1 [facility] Comment on above: Performed By: #### C RP, CMADM, CMP, TSH, BNP #### [facility] [address] [address] [address] Kerry Cassdiy Chloride [Moles/Vol] 103 mmol/L Normal 98-107 [facility] Comment on above: Performed By: #### C RP, CMADM, CMP, TSH, BNP #### [facility] [address] [place] [address] Dr. Kerry Cassidy CO2 [Moles/Vol] 29.8 mmol/L Normal 21.0-32.0 [facility] Comment on above: Performed By: #### C RP, CMADM, CMP, TSH, BNP #### [facility] [address] [place] [address] Dr. Kerry Cassidy Creatinine [Mass/Vol] 0.74 mg/dL Normal 0.55-1.02 [facility] Comment on above: Performed By: #### C RP, CMADM, CMP, TSH, BNP #### [facility] [address] [place] [address] Dr. Kerry Cassidy EGFR-AF KYRGYZ >60 Normal >=60 [facility] Comment on above: Performed By: #### C RP, CMADM, CMP, TSH, BNP #### [facility] [address] [place] [address] Dr. Kerry Cassidy EGFR-NON AF KYRGYZ >60 Normal >=60 [facility] Comment on above: Performed By: #### C RP, CMADM, CMP, TSH, BNP #### [facility] [address] [place] [address] Dr. Kerry Cassidy Globulin (S) [Mass/Vol] 3.1 g/dL Normal [facility] Comment on above: Performed By: #### C RP, CMADM, CMP, TSH, BNP #### [facility] [address] [place] [address] Dr. Kerry Cassidy Glucose [Mass/Vol] 165 mg/dL Critically high 74-106 [facility] Comment on above: Performed By: #### C RP, CMADM, CMP, TSH, BNP #### [facility] [address] [address] [address] Kerry Cassidy Potassium [Moles/Vol] 4.0 mmol/L Normal 3.5-5.1 [facility] Comment on above: Performed By: #### C RP, CMADM, CMP, TSH, BNP #### [facility] [address] [address] [address] Kerry Cassidy Protein [Mass/Vol] 7.4 g/dL Normal 6.4-8.2 [facility] Comment on above: Performed By: #### C RP, CMADM, CMP, TSH, BNP #### [facility] [address] [address] [address] Kerry Cassidy Sodium [Moles/Vol] 140 mmol/L Normal 136-145 [facility] Comment on above: Performed By: #### C RP, CMADM, CMP, TSH, BNP #### [facility] [address] [place] [address] Dr. Kerry Cassidy Urea nitrogen [Mass/Vol] 10.0 mg/dL Normal 7.0-18.0 [facility] Comment on above: Performed By: #### C RP, CMADM, CMP, TSH, BNP #### [facility] [address] [address] [address] Kerry Cassidy Urea nitrogen/Creatinine [Mass ratio] 13.5 mg/mg Normal [facility] Comment on above: Performed By: #### C RP, CMADM, CMP, TSH, BNP #### [facility] [address] [place] [address] Dr. Kerry Cassidy PROTIMEon 09-05-2022 INR Coag (PPP) [Relative time] 1.00 {INR} Normal [facility] Comment on above: Performed By: #### P T #### [facility] [address] [place] [address] Dr. Kerry Cassidy INR GUIDELINES SEE BELOW Normal [facility] Comment on above: Result Comment: LISA RED INR: 2.0 - 3.0 CONDITIONS NOT LISTED BELOW 2.5 - 3.5 FOR PROSTHETIC HEART VALVE REPLACEMENT 2.5 - 3.5 RECURRENT THROMBOSIS Performed By: #### P T #### [facility] [address] [address] [address] Kerry Cassidy PT Coag (PPP) [Time] 10.6 s Normal 9.0-11.6 [facility] Comment on above: Performed By: #### P T #### [facility] [address] [address] [address] Kerry Cassidy SED RATE WESTERGRENon 2022 SED RATE 10 mm/hr Normal <=30 [facility] Comment on above: Performed By: #### S EDR ####[facility] [address] [place] [address]Dr. Kerry Cassidy TSHon 09-05-2022 TSH 1.074 uIU/mL Normal 0.358-3.740 [facility] Comment on above: Performed By: #### C RP, CMADM, CMP, TSH, BNP #### [facility] [address] [address] [address] Kerry Cassidy XR CHEST 1 Von 09-05-2022 XR CHEST 1 V EXAMINATION: XR CHEST 1 V HISTORY: Double vision COMPARISON: None. TECHNIQUE: Portable chest FINDINGS: The lung parenchyma is free of consolidation or infiltrate. No pneumothorax or pleural effusion. The cardiac, mediastinal and hilar contours are normal. The visualized osseous structures exhibit no gross abnormality. IMPRESSION: No acute cardiopulmonary abnormality. Electronically authenticated by: MIGULE ÁNGEL ESCALONA Date: 2022-09-05 15:14 Normal [facility] CNOVon 08-05-2021 CNOV Office Visit (DERMCC) BELKIS FLORES ([id number]) 1950 F Date Time Provider Department 08/05/21 2:45 PM NICOLE STEPHENS During your visit today, we recorded the [...] Past Histories independently gathered by the clinical network desktop support specialist and the remaining scribed note accurately describes [...] ANY QUESTIONS, PLEASE CONTACT OUR OFFICE. Ester [phone] Chanda [phone] Referring Provider: SELF [200] Allergies As of Date: 08/05/2021 (No Known Allergies) Date Reviewed: 08/05/2021 Reviewed by: Alonso Padgett MA - Fully Assessed Reason for Visit: New Patient [172] Primary Visit Diagnosis:Inflamed seborrheic keratosis [L82.0] Other Visit Diagnoses:Seborrheic keratosis [L82.1] Nevus, non-neoplastic [I78.1] Order(s):CRYOTHERAPY SKIN LESION [8823720] Order #: [id number]: 1 Prescriptions as of 08/05/2021 - aspirin [...] mild redne (more content not included)... Normal [facility] METABOLIC PANE Charles 03-11-2021 Albumin [Mass/Vol] 4.2 g/dL Normal 3.6-5.1 [facility] Comment on above: Performed By: #### 1 0231, 7600 #### [facility] [place] [address] [employer]: Chaz Tucker MD Albumin/Globulin [Mass ratio] 1.8 {ratio} Normal 1.0-2.5 [facility] Comment on above: Performed By: #### 1 0231, 7600 #### [facility] [place] [address] [employer]: Chaz Tucker MD ALP [Catalytic activity/Vol] 70 U/L Normal 37-153 [facility] Comment on above: Performed By: #### 1 0231, 7600 #### [facility] [place] [address] [employer]: Chaz Tucker MD ALT [Catalytic activity/Vol] 18 U/L Normal 6-29 [facility] Comment on above: Performed By: #### 1 0231, 7600 #### [facility] [place] [address] [employer]: Chaz Tucker MD AST [Catalytic activity/Vol] 22 U/L Normal 10-35 [facility] Comment on above: Performed By: #### 1 0231, 7600 #### [facility] [place] [address] [employer]: Chaz Tucker MD Bilirubin [Mass/Vol] 1.0 mg/dL Normal 0.2-1.2 [facility] Comment on above: Performed By: #### 1 023, 7600 #### [facility] [place] [address] [employer]: Chaz Tucker MD BUN/CREATININE RATIO NOT APPLICABLE Normal 6-22 [facility] Comment on above: Performed By: #### 1 023, 7600 #### [facility] [place] [address] [employer]: Chaz Tucker MD Calcium [Mass/Vol] 9.3 mg/dL Normal 8.6-10.4 [facility] Comment on above: Performed By: #### 1 023, 7600 #### [facility] [place] [address] [employer]: Chaz Tucker MD Chloride [Moles/Vol] 103 mmol/L Normal 98-110 [facility] Comment on above: Performed By: #### 1 023, 7600 #### [facility] [place] [address] [employer]: Chaz Tucker MD CO2 [Moles/Vol] 30 mmol/L Normal 20-32 [facility] Comment on above: Performed By: #### 1 230, 7600 #### [facility] [place] [address] [employer]: Chaz Tucker MD Creatinine [Mass/Vol] 0.68 mg/dL Normal 0.50-0.99 [facility] Comment on above: Result Comment: For patients >49 years of age, the reference limit for Creatinine is approximately 13% higher for people identified as -Haitian. Performed By: #### 1 023, 7600 #### [facility] [place] [address] [employer]: Chaz Tucker MD eGFR NON-AFR. KYRGYZ 90 mL/min/1.73m2 Normal > OR = 60 [facility] Comment on above: Performed By: #### 1 023, 7600 #### [facility] [address], [address] [place] [address] [employer]: Chaz Tucker MD GFR/1.73 sq M.predicted among blacks MDRD (S/P/Bld) [Vol rate/Area] 104 mL/min/{1.73_m2} Normal > OR = 60 [facility] Comment on above: Performed By: #### 1 023, 7600 #### [facility] [address], [address] [place] [address] [employer]: Chaz Tucker MD Globulin (S) [Mass/Vol] 2.4 g/dL Normal 1.9-3.7 [facility] Comment on above: Performed By: #### 1 230, 7600 #### [facility] [place] [address] [employer]: Chaz Tucker MD Glucose [Mass/Vol] 88 mg/dL Normal 65-99 [facility] Comment on above: Result Comment: Fasting reference interval Performed By: #### 1 230, 0 #### [facility] [place] [address] [employer]: Chaz Tucker MD Potassium [Moles/Vol] 4.5 mmol/L Normal 3.5-5.3 [facility] Comment on above: Performed By: #### 1 230, 7600 #### [facility] [place] [address] [employer]: Chaz Tucekr MD Protein [Mass/Vol] 6.6 g/dL Normal 6.1-8.1 [facility] Comment on above: Performed By: #### 1 023, 7600 #### [facility] [place] [address] [employer]: Chaz Tucker MD Sodium [Moles/Vol] 137 mmol/L Normal 135-146 [facility] Comment on above: Performed By: #### 1 023, 7600 #### [facility] [address], [address] [place] [address] [employer]: Chaz Tucker MD Urea nitrogen [Mass/Vol] 11 mg/dL Normal 7-25 [facility] Comment on above: Performed By: #### 1 0231, 7600 #### [facility] [address], [address] [place] [address] [employer]: Chaz Tucker MD LIPID PANEL, [facility] [place] 02-25 Cholesterol [Mass/Vol] 201 mg/dL High <200 [facility] Comment on above: Performed By: #### 1 0231, 7600 #### [facility] [address], [address] [place] [address] [employer]: Chaz Tucker MD Cholesterol in HDL [Mass/Vol] 77 mg/dL Normal > OR = 50 [facility] Comment on above: Performed By: #### 1 023, 0 #### [facility] [address], [address] [place] [address] [employer]: Chaz Tucker MD Cholesterol in LDL [Mass/Vol] [...] equation in the estimation of LDL-C. Robby HENDERSON et al. OWEN. 2013;310(19): 0857-3275 (http://education.Biomonde.Optimata/faq/QIW764) Performed By: #### 1 0231, 7600 #### [facility] [place] [address] [employer]: Chaz Tucker MD Cholesterol.total/C holesterol in HDL [Mass ratio] 2.6 {ratio} Normal <5.0 [facility] Comment on above: Performed By: #### 1 0231, 7600 #### [facility] [address], [address] [place] [address] [employer]: Chaz Tucker MD NON HDL CHOLESTEROL 124 mg/dL (calc) Normal <130 [facility] Comment on above: Result Comment: For patients with diabetes plus 1 major ASCVD risk factor, treating to a non-HDL-C goal of <100 mg/dL (LDL-C of <70 mg/dL) is considered a therapeutic option. Performed By: #### 1 023, 7600 #### [facility] [address], [address] [place] [address] [employer]: Chaz Tucker MD Triglyceride [Mass/Vol] 76 mg/dL Normal <150 [facility] Comment on above: Performed By: #### 1 023, 2070 #### [facility] [address], [address] [place] [address] [employer]: Chaz Tucker MD SARS CoV 2 SEROLOGY [...] providers and patients using the following websites: cube19/Appointuit/Covid-19/HCP/antibody/fact-sheet2 cube19/home/Covid-19/Patients/antibody/fact-sheet2 cube19/[employer]/Covid-19/HCP/antibody/fact-sheet6 cube19/home/Covid-19/Patients/antibody/fact-sheet6 These tests have been authorized by the FDA under an Emergency Use Authorization (EUA) for use by authorized laboratories. The FDA authorized fact sheets are available on the [employer] website: www.cube19/Covid19. For additional information please refer to http://education.PredPol/faq/AEZ824 (This link is being provided for informational/ educational purposes only.) Performed By: #### 3 1672 #### [facility] [address], [address] [place] [phone] [employer]: Chaz Tucker MD SARS-CoV-2 (COVID-19) IgM Ab [Presence] in Serum, Plasma or Blood by Rapid immunoassay Negative Normal NEGATIVE [facility] Comment on above: Result Comment: Reference [...] providers and patients using the following websites: cube19/[employer]/Covid-19/HCP/antibody/fact-sheet2 cube19/[employer]/Covid-19/Patients/antibody/fact-sheet2 cube19/[employer]/Covid-19/HCP/antibody/fact-sheet6 cube19/[employer]/Covid-19/Patients/antibody/fact-sheet6 These tests have been authorized by the FDA under an Emergency Use Authorization (EUA) for use by authorized laboratories. The FDA authorized fact sheets are available on the [employer] website: www.cube19/Covid19. For additional information please refer to http://education.PredPol/faq/PRV692 (This link is being provided for informational/ educational purposes only.) Performed By: #### 3 [id number] #### [facility] [address] [address] [employer]: Chaz Tucker MD Encounters Encounter Date Encounter Type Care Provider Facility Start: 08-28-2025 ambulatory Brandt Head Facility :[facility] Start: 08-30-2024 End: 08-30-2024 ambulatory Brandt Head Facility:[facility] Start: 08-28-2024 End: 08-28-2024 ambulatory Brandt Head Facility:[facility] Start: 08-27-2024 End: 08-27-2024 ambulatory Brandt Head Facility:[facility] Start: 08-17-2024 End: 08-17-2024 ambulatory Karla Sandhu Facility:[facility] Start: 04-02-2024 ambulatory Brandt Head Facility :[facility] Start: 03-15-2023 Patient encounter procedure Referring Provider Unknown [id number] Work Phone: Start: 03-15-[address] Cooper Mendoza Facility:[id number] Start: 11-09-[address] Cooper Mendoza Facility:[id number] Start: 09-05-2022 End: 09-06-[address] TAN COULTER Facility:[facility] Procedures Date Procedure Procedure Detail Performing Clinician Cataract surgery Referring Nargis ramos Unknown Surgical procedure on eye proper Referring Provider Unknown Payers Date Payer Category Payer Medicare [id number] 1957 Unknown [id number] 1950 Unknown [id number] 2.16.84 [id number] 1950 Unknown [id number] 2.16. [id number] 1950 Unknown [id number] 2.16. [id number] 1952 Unknown [id number] 2.16.8 [id number] 1952 Unknown [id number] 2.16.8 40.1.013422.3.579.2.727 1952 Unknown [id number] 2.16.8 40.1.314832.3.579.2.727 1952 Unknown [id number] 2.16.8 40.1.662113.3.579.2.727 1952 Unknown [id number] 2.16.8 40.1.626159.3.579.2.727 1952 Unknown [id number] 2.16.8 40.1.645081.3.579.2.727 1952 Unknown [id number] 2.16.8 40.1.986656.3.579.2.727 1952 Unknown [id number] 2.16.8 40.1.873689.3.579.2.727 1952 Unknown [id number] 2.16.8 [id number] Unknown Social History Date Type Detail Facility Non-smoker Non-smoker [facility] Work Phone: Clinical Note 08-28-2024 Note Date & Type Note Facility 08-28-2024 Note Patient Education Obstetrics and Gynecology Breast Self-Awareness Breast self-awareness is knowing how your breasts look and feel. You need to: ??? Check your breasts on a regular basis. ??? Tell your doctor about any changes. Become familiar with the look and feel of your breasts. This can help you catch a breast problem while it is still small and can be treated. You should do breast self-exams even if you have breast implants. What you need: ??? A mirror. ??? A well-lit room. ??? A pillow or other soft object. How to do a breast self-exam Follow these steps to do a breast self-exam: Look for changes 1. Take off all the clothes above your waist. 2. department coordinator front of a mirror in a room with good lighting. 3. Put your hands down at your sides. 4. Compare your breasts in the mirror. Look for any difference between them, such as: ??? A difference in shape. ??? A difference in size. ??? Wrinkles, dips, and bumps in one breast and not the other. 5. Look at each breast for changes in the skin, such as: ??? Redness. ??? Scaly areas. ??? Skin that has gotten thicker. ??? Dimpling. ??? Open sores (ulcers). 6. Look for changes in your nipples, such as: ??? Fluid coming out of a nipple. ??? Fluid around a nipple. ??? Bleeding. ??? Dimpling. ??? Redness. ??? A nipple that looks pushed in (retracted), or that has changed position. Feel for changes 1. Lie on your back. 2. Feel each breast. To do this: ??? Pick a breast to feel. ??? Place a pillow under the shoulder closest to that breast. Put the arm closest to that breast behind your head. ??? Feel the nipple area of that breast using the hand of your other arm. Feel the area with the pads of your three middle fingers by making small circles with your fingers. Use light, medium, and firm pressure. ??? Continue the overlapping circles, moving downward over the breast. Keep making circles with your fingers. Stop when you feel your ribs. ??? Start making circles with your fingers again, this time going upward until you reach your collarbone. ??? Then, make circles outward across your breast and into your armpit area. ??? Squeeze your nipple. Check for discharge and lumps. ??? Repeat these steps to check your other breast. 3. Sit or musical string maker the tub or shower. 4. With soapy water on your skin, feel each breast the same way you did when you were lying down. Write down what you find Writing down what you find can help you remember what to tell your doctor. Write down: ??? What is normal for each breast. ??? Any changes you find in each breast. These include: ? The kind of changes you find. ? A tender or painful breast. ? Any lump you find. Write down its size and where it is. ??? When you last had your monthly period (menstrual cycle). General tips ??? If you are , the best time to check your breasts is after you feed your baby or after you use a breast pump. ??? If you get monthly bleeding, the best time to check your breasts is 5?7 days after your monthly cycle ends. ??? With time, you will become comfortable with the self-exam. You will also start to know if there are changes in your breasts. Contact a doctor if: ??? You see a change in the shape or size of your breasts or nipples. ??? You see a change in the skin of your breast or nipples, such as red or scaly skin. ??? You have fluid coming from your nipples that is not normal. ??? You find a new lump or thick area. ??? You have breast pain. ??? You have any concerns about your breast health. Summary ??? Breast self-awareness includes looking for changes in your breasts and feeling for changes within your breasts. ??? You should do breast self-awareness in front of a mirror in a well-lit room. ??? If you get monthly periods (menstrual cycles), the best time to check your breasts is 5?7 days after your period ends. ??? Tell your doctor about any changes you see in your breasts. Changes include changes in size, changes on the skin, painful or tender breasts, or fluid from your nipples that is not normal. This information is not intended to replace advice given to you by your health care provider. Make sure you discuss any questions you have with your health care provider. Document Revised: 11/18/2022 Document Reviewed: 04/15/2022 Elsevier Patient Education ? 2023 [employer] [facility] Bone Density Test A bone density test uses a type of X-ray to measure the amount of calcium and other minerals in a person's bones. It can measure bone density in the hip and the spine. The test is similar to having a regular X-ray. This test may also be called: ??? Bone densitometry. ??? Bone mineral density test. ??? Dual-energy X-ray absorptiometry (DEXA). You may have this test to: ??? Diagnose a condition that causes weak or thin bones (osteoporosis). ??? Screen you for osteoporosis. ??? Predict your risk for a broken bon (more content not included)... [facility] Progress note 08-05-2021 Note Date & Type Note Facility 08-05-2021 Note HNO ID: [id number] Author: Nicole Stephens MD Service: ? Author [...] Past Histories independently gathered by the clinical network desktop support specialist and the remaining scribed note accurately describes my personal service to the patient. Nicole Stephens MD [facility] Summary Purpose Family History No Family History [...] DATE CREATED AUTHOR AUTHOR'S ORGANIZ ATION 09/18/2021 [facility] DATE CREATED AUTHOR AUTHOR'S ORGANIZ ATION 09/09/2022 [facility] DATE CREATED AUTHOR AUTHOR'S ORGANIZ ATION 03/17/2023 [facility] DATE CREATED AUTHOR AUTHOR'S ORGANIZ ATION 03/17/2023 [facility] DATE CREATED AUTHOR AUTHOR'S ORGANIZ ATION 08/31/2024 [facility] DATE CREATED AUTHOR AUTHOR'S ORGANIZ ATION 09/02/2024 [facility] FOR RECORDS PERTAINING TO PATIENTS WHO ARE [...] BE BASED ON THE PRIMARY CLINICAL RECORDS. [facility] [employer] [facility]. provides no warranty or guarantee of the accuracy or completeness of information in this document.
== END 2024-09-04 09:12 | disposition home or self-care (01) ==
LOC: RAD 09:11
PROVIDERS: PCP Family Medicine; Visit Provider Family Medicine
DX: E28.39 Other primary ovarian failure (principal)
CPT/HCPCS: 77080